=== PATIENT | female | born 1930 | race African-American/Black ===

== ENCOUNTER → 2016-07-25 | Outpatient (CLI) | payer MEDICARE, BC ==
[2016-07-25 10:06] LABS: BASO # 0.1 x10^3/uL (0.0-0.2); BASO % 2 % (0-3); EOS % 3 % (0-3); HEMATOCRIT 24.7 % (36.0-47.0); HEMOGLOBIN 7.5 g/dL (12.0-15.5); LYMPH # 0.8 x10^3/uL (1.0-4.8); LYMPH % 13 % (24-48); MEAN CORPUSCULAR HEMOGLOBIN 25 pg (25-35); MEAN CORPUSCULAR HGB CONC 30 g/dL (31-37); MEAN CORPUSCULAR VOLUME 81 fL (79-100); MONO % 8 % (0-9); NEUT % 75 % (31-73); PLATELET COUNT 269 x10^3/uL (140-400); RED BLOOD COUNT 3.06 x10^6/uL (3.50-5.40); WHITE BLOOD COUNT 6.8 x10^3/uL (4.0-11.0)
[2016-07-25 10:07] LABS: BILIRUBIN,URINE NEGATIVE (NEG); GLUCOSE,URINE NEGATIVE (NEG); NITRITE,URINE NEGATIVE (NEG); PROTEIN,URINE NEGATIVE (NEG-TRACE); UROBILINOGEN,URINE 0.2 mg/dL (0.2 mg/dL)
[2016-07-25 10:20] LABS: ALBUMIN 3.9 g/dL (3.4-5.0); CALCIUM 9.1 mg/dL (8.5-10.1); CREATININE 1.4 mg/dL (0.6-1.0); MAGNESIUM 1.9 mg/dL (1.8-2.4); PHOSPHORUS 3.2 mg/dL (2.6-4.7); POTASSIUM 3.7 mmol/L (3.5-5.1); TOTAL BILIRUBIN 0.6 mg/dL (0.2-1.0); TOTAL PROTEIN 7.7 g/dL (6.4-8.2); URIC ACID 5.1 mg/dL (2.6-6.0)
[2016-07-25 10:38] LABS: BACTERIA,URINE FEW /HPF (0-FEW); RBC,URINE OCC /HPF (0-2); SQUAMOUS EPITHELIAL CELL,UR MOD /LPF
== END | disposition home or self-care (01) ==
LOC: LAB 09:29
PROVIDERS: ATTEND Internal Medicine Nephrology
DX: N18.2 Chronic kidney disease, stage 2 (mild) (principal)
CPT/HCPCS: 36415; 80053; 81001; 83735; 84100; 84550; 85027; 87086

== ENCOUNTER → 2016-08-02 | Outpatient (CLI) | payer MEDICARE, BC ==
[~2016-08-02] MED LIST: ASPI1TAB30 PO; ATOR10TA60 PO; CHOL20003 PO; VALS320T2 PO
[2016-08-02 14:41] LABS: BASO # 0.1 x10^3/uL (0.0-0.2); BASO % 2 % (0-3); EOS % 2 % (0-3); HEMATOCRIT 22.8 % (36.0-47.0); LYMPH # 0.8 x10^3/uL (1.0-4.8); LYMPH % 12 % (24-48); MEAN CORPUSCULAR HEMOGLOBIN 24 pg (25-35); MEAN CORPUSCULAR HGB CONC 31 g/dL (31-37); MEAN CORPUSCULAR VOLUME 79 fL (79-100); MONO % 11 % (0-9); NEUT % 74 % (31-73); PLATELET COUNT 262 x10^3/uL (140-400); RED BLOOD COUNT 2.88 x10^6/uL (3.50-5.40); RED CELL DISTRIBUTION WIDTH 16.2 % (11.5-14.5); WHITE BLOOD COUNT 6.8 x10^3/uL (4.0-11.0)
[2016-08-02 15:05] LABS: % SAT IRON 3 % (15-34); IRON,SERUM 12 ug/dL (50-170)
--- NOTE | 2016-08-02 15:58 | RAD ---
Indication unintended weight loss. PA and lateral views of the chest were obtained. No prior plain film imaging of the chest is available. There is generalized cardiomegaly. Tortuous thoracic aorta is noted. There are patchy opacities in the lungs which probably reflecting chronic pleural-parenchymal scarring. An infectious component in the lungs is not entirely excluded but is felt less likely. A definite consolidated pneumonia is not seen. There is no pleural fluid. A dominant mass in either lung is not seen. There is likely bony demineralization. Degenerative changes are seen in the visualized spinal column. IMPRESSION: Cardiomegaly. Probable pleural-parenchymal scarring. No acute finding seen in the chest or dominant soft tissue mass.
== END | disposition home or self-care (01) ==
LOC: LAB 14:17
PROVIDERS: ATTEND Family Medicine
DX: D64.9 Anemia, unspecified (principal); R63.4 Abnormal weight loss
CPT/HCPCS: 36415; 71020; 82728; 83540; 83550; 85027

== ENCOUNTER 2016-08-05 12:28 | Inpatient (IN) | payer MEDICARE, BC ==
[~2016-08-05] VITALS: Ht 134.6 cm; Wt 45.4 kg
--- NOTE | 2016-08-05 13:05 | EKG ---
[facility] [address] [place] [address] Test Date: 2016-08-05 Test Time: 12:59:11 Pat Name: REY GLASER Department: Room: Gender: F Warp Hanger: : 1930 Requested By: ARIA RIVERO Order Number: [id number] Reading MD: Ivan Dunham Measurements Intervals [place] Rate: 85 P: -34 VA: 138 QRS: -21 QRSD: 104 T: 64 QT: 396 QTc: 477 Interpretive Statements SINUS RHYTHM LEFTWARD AXIS CONSISTENT WITH ANTEROSEPTAL INFARCT AGE UNDETERMINED NON-SPECIFIC ST/T CHANGES Electronically Signed On 08-06-2016 9:43:21 CDT by Ivan Dunham
[2016-08-05] MEDS ORDERED: MORPHINE SULFATE 2 MG/ML DISP.SYRIN. IV PRN (13:15)
[2016-08-05] MEDS ORDERED: ONDANSETRON PF 4 MG/2 ML VIAL. IV PRN ×2 (13:15→14:08)
--- NOTE | 2016-08-05 13:21 | PHYS DOC ---
Past Medical History Past Medical History: High Cholesterol, Migraines, Other Additional Past Medical Histor: scoliosis Past Surgical History: No Surgical History Alcohol Use: None Drug Use: None Adult General Chief Complaint Chief Complaint: WEIGHT LOSS HPI HPI 85-year-old female presenting to the emergency department today by private vehicle with a friend. She reports being seen in primary care clinic and being evaluated for intermittent abdominal pain and nausea. They obtained blood work on Friday. The hemoglobin of the patient came back at 7 and the patient was called and instructed to come to the emergency department for an admission. Report of positive fecal occult hemoglobin. Weight loss as well. Her abdominal pain is been a general discomfort that is nonfocal for about 6 weeks. Mild nausea with watery stools. She denies seeing blood in her stool, however her fecal occult testing in clinic was positive. Her pain is nonradiating. It is moderate. No specific timing. Review of systems is positive for chills weight loss. Negative for chest pain shortness of breath or syncope. All other review of systems is negative unless otherwise noted in history of present illness. Review of Systems Review of Systems SEE ABOVE. Current Medications Current Medications Current Medications Medications (Trade) Dose Ordered Sig/Talia Start Time Stop Time Status Last Admin Dose Admin Sodium Chloride (Iv Sodium Chloride 0.9% 500ml Bag) 500 ml @ 500 mls/hr 1X ONCE 08/05/16 13:30 08/05/16 14:29 08/05/16 13:02 500 MLS/HR Allergies Allergies Allergies Coded Allergies Type Severity Reaction Last Updated Verified No Known Drug Allergies 08/05/16 No Physical Exam Physical Exam Constitutional: Well developed, well nourished, no acute distress, non-toxic appearance. HENT: Normocephalic, atraumatic, bilateral external ears normal, oropharynx moist, no oral exudates, nose normal. [] Eyes: PERRLA, EOMI, conjunctiva normal, no discharge. Neck: Normal range of motion, no tenderness, supple, no stridor. [] Cardiovascular:Heart rate regular rhythm, no murmur Lungs & Thorax: Bilateral breath sounds clear to auscultation [] Abdomen: Abdomen is soft and nontender palpation. Negative McBurney's point. Negative Padilla sign. No rebound tenderness or guarding present. Skin: Warm, dry, no erythema, no rash. Back: No tenderness, no CVA tenderness. [] Extremities: No tenderness, no cyanosis, no clubbing, ROM intact, no edema. Neurologic: Alert and oriented X 3, normal motor function, normal sensory function, no focal deficits noted. Psychologic: Affect normal, judgement normal, mood normal. [] Current Patient Data Vital Signs Vital Signs Date Time Temp Pulse Resp B/P Pulse Ox O2 Delivery O2 Flow Rate FiO2 08/05/16 12:32 97.9 93 24 147/40 100 Room Air 97.9 EKG EKG EKG shows sinus rhythm with a regular rate. Left axis deviation present. ST segments congruent. Intervals show mildly prolonged QRS. Radiology/Procedures Radiology/Procedures [] Course & Med Decision Making Course & Med Decision Making Pertinent Labs and Imaging studies reviewed. (See chart for details) [85-year-old female presenting to the emergency department this morning after having abdominal pain previously though currently does not have abdominal pain. She had been seen in clinic and found to have a low hemoglobin. Blood work obtained here. Vital signs here show a heart rate in the mid 90s. Saturating well and comfortable appearing with a nontender abdominal exam. Fecal occult testing positive there. Patient was given a small bolus of fluids here type and screen obtained. I discussed the case with Dr. Rader our rescue worker. And the patient was subsequent admitted to Dr. Gongora at approximately 1:10 PM at which point the patient's care was transferred. Dragon Disclaimer Dragon Disclaimer This electronic medical record was generated, in whole or in part, using a voice recognition dictation system. Departure Departure Impression: Primary Impression: Anemia Additional Impression: GI bleed Disposition: ADMITTED INPATIENT Admitting Physician: Zohreh Gongora Condition: STABLE Referrals: LYDIA MALLORY MD (PCP) Problem Qualifiers Primary Impression: Anemia Anemia type: unspecified type Qualified Code: D64.9 - Anemia, unspecified ARIA RIVERO MD Aug 05, 2016 13:21
[2016-08-05] MEDS: IV NORMAL SALINE 1000ML BAG 1,000 ML IV SCH ×3 (13:25→21:12)
[2016-08-05] MEDS ORDERED: IV NORMAL SALINE 500ML BAG 500 ML IV ONE (13:30)
[2016-08-05 13:32] LABS: BASO # 0.1 x10^3/uL (0.0-0.2); BASO % 1 % (0-3); EOS % 0 % (0-3); HEMATOCRIT 22.3 % (36.0-47.0); LYMPH # 0.7 x10^3/uL (1.0-4.8); LYMPH % 12 % (24-48); MEAN CORPUSCULAR HEMOGLOBIN 24 pg (25-35); MEAN CORPUSCULAR HGB CONC 30 g/dL (31-37); MEAN CORPUSCULAR VOLUME 79 fL (79-100); MONO % 7 % (0-9); NEUT % 80 % (31-73); PLATELET COUNT 237 x10^3/uL (140-400); RED BLOOD COUNT 2.83 x10^6/uL (3.50-5.40); RED CELL DISTRIBUTION WIDTH 16.3 % (11.5-14.5)
[2016-08-05 13:34] LABS: HEMOGLOBIN 6.7 g/dL (12.0-15.5)
[2016-08-05 13:43] LABS: INR 1.2 (0.8-1.1); PROTHROMBIN TIME PATIENT 14.5 SEC (11.7-14.0)
[2016-08-05 13:43] LABS: BILIRUBIN,URINE NEGATIVE (NEG); GLUCOSE,URINE NEGATIVE (NEG); NITRITE,URINE NEGATIVE (NEG); PH,URINE 6.5; PROTEIN,URINE NEGATIVE (NEG-TRACE)
[2016-08-05 13:44] LABS: CALCIUM 9.7 mg/dL (8.5-10.1); CREATININE 1.3 mg/dL (0.6-1.0); GFR 46.9; POTASSIUM 4.2 mmol/L (3.5-5.1)
[2016-08-05 14:14] LABS: BACTERIA,URINE FEW /HPF (0-FEW); RBC,URINE RARE /HPF (0-2); SQUAMOUS EPITHELIAL CELL,UR FEW /LPF; WBC,URINE RARE /HPF (0-4)
[2016-08-05] MEDS ORDERED: LIDOCAINE (700MG/PATCH) PATCH. TD PRN (14:15)
[2016-08-05] MEDS ORDERED: ACETAMINOPHEN 500 MG TABLET PO PRN (14:15)
--- NOTE | 2016-08-05 14:20 | PDOC1 ---
History and Physical Date of Admission Date of Admission DATE: 08/05/16 TIME: 14:12 Identification/Chief Complaint Chief Complaint sent by PCP bec of hgb 7 from 11 Source Source: Caregiver, Chart review, Patient History of Present Illness History of Present Illness 85 y/o AA female otherwise previously healthy and fully functional for stated age, has CKD follows with Giovani Chandler q 6 mos, was found to have hgb 7 from 11 and so was sent to ER, NO reports of melena but has been taking OTC alleve, qdaily for scoliosis. Only takes a hyperlipidemic agent at home. Hgb 6.9 at ER,VS ok except for mild tachycardia, Pt ambulated to the bathroom with no presyncopal sxs (lightheadedness or dizziness). She denies easy fatigability or lack of energy, Does admit to around 10 lb weight loss in past few mos, but claims not a big eater too. Last c scope done was routine some 3 yrs ago and was normal, She vows she will never have another c scope; Er has informed GI of the admit, after dw ER, we will transfuse 1 pRBC, get iron studies prior to transfusion, CAse dw friend at bedside, pt, ER MD and FIELD LIABILITY GENERALIST MCV 77 Past Medical History Cardiovascular: Hyperlipidemia Past Surgical History Past Surgical History: No pertinent history Family History Family History: No Significant Social History Smoke: No ALCOHOL: none Drugs: None Current Problem List Problem List Problems Medical Problems: (1) Anemia Status: Acute (2) GI bleed Status: Acute Problems: Current Medications Current Medications Current Medications Sodium Chloride (Iv Sodium Chloride 0.9% 500ml Bag) 500 ml @ 500 mls/hr 1X ONCE IV Last administered on 08/05/16t 13:02; Start 08/05/16 at 13:30; Stop at 14:29 Ondansetron HCl (Zofran) 4 mg PRN Q8HRS PRN IV NAUSEA/VOMITING; Start 08/05/16 at 13:15; Stop 08/06/16 at 13:14 Morphine Sulfate 2 mg 2 mg PRN Q2HR PRN IV PAIN; Start 08/05/16 at 13:15; Stop 08/06/16 at 13:14 Sodium Chloride (Iv Sodium Chloride 0.9% 1000ml Bag) 1,000 ml @ 100 mls/hr Q10H IV Last administered on 08/05/16t 13:25; Start 08/05/16 at 13:30; Stop at 13:29 Allergies Allergies: Coded Allergies: No Known Drug Allergies (Unverified , 08/05/16) ROS Review of System weight loss, no emesis, melena, no dec appetite, no cp, soa, abd pain, or change in BM Physical Exam General: Alert, Oriented X3, Cooperative, No acute distress HEENT: Atraumatic, PERRLA, EOMI Lungs: Clear to auscultation, Normal air movement Heart: S1S2, RRR, no thrills, no rubs, no gallops Cardiovascular: S1, S2 Breasts: Normal, Rt breast nml w/o mass, Lt breast nml w/o mass, Nipples normal Abdomen: Normal bowel sounds, Soft, No tenderness, No hepatosplenomegaly, No masses Male Genitals Exam: normal genitalia Rectal Exam: not examined PELVIC: Nml ext genitalia Extremities: No clubbing, No cyanosis, No edema, Normal pulses, No tenderness/ swelling Skin: No rashes, No breakdown, No significant lesion Neuro: Normal gait, Normal speech, Strength at 5/5 X4 ext, Normal tone, Sensation intact, Cranial nerves 3-12 NL, Reflexes 2+ Psych/Mental Status: Mental status NL, Mood NL Vitals Vitals Vital Signs Date Time Temp Pulse Resp B/P Pulse Ox O2 Delivery O2 Flow Rate FiO2 08/05/16 13:13 92 138/69 96 Room Air 08/05/16 12:32 97.9 24 97.9 Labs Labs Laboratory Tests Test 08/05/16 12:55 White Blood Count 6.0x10^3/uL (4.0-11.0) Red Blood Count 2.83x10^6/uL (3.50-5.40) Hemoglobin 6.7g/dL (12.0-15.5) Hematocrit 22.3% (36.0-47.0) Mean Corpuscular Volume 79fL (79-100) Mean Corpuscular Hemoglobin 24pg (25-35) Mean Corpuscular Hemoglobin Concent 30g/dL (31-37) Red Cell Distribution Width 16.3% (11.5-14.5) Platelet Count 237x10^3/uL (140-400) Neutrophils (%) (Auto) 80% (31-73) Lymphocytes (%) (Auto) 12% (24-48) Monocytes (%) (Auto) 7% (0-9) Eosinophils (%) (Auto) 0% (0-3) Basophils (%) (Auto) 1% (0-3) Neutrophils # (Auto) 4.8x10^3uL (1.8-7.7) Lymphocytes # (Auto) 0.7x10^3/uL (1.0-4.8) Monocytes # (Auto) 0.4x10^3/uL (0.0-1.1) Eosinophils # (Auto) 0.0x10^3/uL (0.0-0.7) Basophils # (Auto) 0.1x10^3/uL (0.0-0.2) Sodium Level 145mmol/L (136-145) Potassium Level 4.2mmol/L (3.5-5.1) Chloride Level 109mmol/L (98-107) Carbon Dioxide Level 24mmol/L (21-32) Anion Gap 12 (6-14) Blood Urea Nitrogen 23mg/dL (7-20) Creatinine 1.3mg/dL (0.6-1.0) Estimated GFR (Cockcroft-Gault) 46.9 Glucose Level 110mg/dL (70-99) Lactic Acid Level 1.6mmol/L (0.4-2.0) Calcium Level 9.7mg/dL (8.5-10.1) Troponin I Quantitative < 0.017ng/mL (0.000-0.055) Lipase 106U/L (73-393) Laboratory Tests Test 08/05/16 12:55 White Blood Count 6.0x10^3/uL (4.0-11.0) Red Blood Count 2.83x10^6/uL (3.50-5.40) Hemoglobin 6.7g/dL (12.0-15.5) Hematocrit 22.3% (36.0-47.0) Mean Corpuscular Volume 79fL (79-100) Mean Corpuscular Hemoglobin 24pg (25-35) Mean Corpuscular Hemoglobin Concent 30g/dL (31-37) Red Cell Distribution Width 16.3% (11.5-14.5) Platelet Count 237x10^3/uL (140-400) Neutrophils (%) (Auto) 80% (31-73) Lymphocytes (%) (Auto) 12% (24-48) Monocytes (%) (Auto) 7% (0-9) Eosinophils (%) (Auto) 0% (0-3) Basophils (%) (Auto) 1% (0-3) Neutrophils # (Auto) 4.8x10^3uL (1.8-7.7) Lymphocytes # (Auto) 0.7x10^3/uL (1.0-4.8) Monocytes # (Auto) 0.4x10^3/uL (0.0-1.1) Eosinophils # (Auto) 0.0x10^3/uL (0.0-0.7) Basophils # (Auto) 0.1x10^3/uL (0.0-0.2) Sodium Level 145mmol/L (136-145) Potassium Level 4.2mmol/L (3.5-5.1) Chloride Level 109mmol/L (98-107) Carbon Dioxide Level 24mmol/L (21-32) Anion Gap 12 (6-14) Blood Urea Nitrogen 23mg/dL (7-20) Creatinine 1.3mg/dL (0.6-1.0) Estimated GFR (Cockcroft-Gault) 46.9 Glucose Level 110mg/dL (70-99) Lactic Acid Level 1.6mmol/L (0.4-2.0) Calcium Level 9.7mg/dL (8.5-10.1) Troponin I Quantitative < 0.017ng/mL (0.000-0.055) Lipase 106U/L (73-393) VTE Prophylaxis Ordered VTE Prophylaxis Devices: Contraindicated VTE Pharmacological Prophylaxi: Contraindicated Assessment/Plan Assessment/Plan 1. Acute microcytic anemia, acute precipitous drop of hgb - difftls include gastritis, PUD, non ulcer gastritis from long time NSAID use (2mos now for scoliosis) 2. Chronic anemia of CKD - follows with renal q 6 mos 3. Scoliosis 4. Dyslipidemia 5. CKD - crea 1,4 seems baseline PLAn: Admit med tele, 2 mN IVF PPI COnsult GI NPO post MN, ok for diet for now TYpe and screen, transfuse 1 pRBC now, rpt HH moraima AM Check iron studies Monitor creatinine fcn No need for renal consult for now MAy check B12 and folate too as indices are borderline If hgb cont to drop and FOBT positive, might need EGD Dw ER MD, FIELD LIABILITY GENERALIST, pt and family TYlenol and lidoderm for back pain/scoliosis PT/OT DANII WHITING MD Aug 05, 2016 14:20
--- NOTE | 2016-08-05 14:47 | ACF ---
Admission Forms Criteria ANEMIA, IRON DEFICIENCY OR UNSPECIFIED Clinical Indications for Inpatient Care (Place 'X' for any and all applicable criteria): Admission is indicated for ANY ONE of the following(1)(2)(3)(4)(5)(6)(7): [X] I. Inpatient admission required rather than observation care (Also use Anemia, Iron Deficiency or Unspecified: Observation Care guideline as appropriate) because of ANY ONE of the following: [] a) Hemodynamic instability that is severe or persistent [] b) Active bleeding that cannot be rapidly controlled [] c) CVS symptoms (i.e., dyspnea, chest pain, heart failure) that are severe or persistent [] d) Neurologic symptoms (i.e., cognitive impairment, recurrent syncope or near syncope) that are severe or persistent [] e) Cardiac arrhythmias of immediate concern [] f) Acute peripheral ischemia (e.g., pulseless, cool, mottled, or cyanotic extremity) [] g) High-risk low platelet count [] h) Acute renal failure [] i) Ongoing transfusion for blood loss (greater than 2 units) [] j) IV fluid to replace significant ongoing (eg, >24 hours) losses (> 3 L/m2 per day) [] k) Pulmonary artery catheter monitoring [] l) Supplemental oxygen or respiratory treatments for over 24 hours that are performable only in acute inpatient setting [] m) Immediate inpatient surgery [X] n) Other condition, treatment or monitoring requiring inpatient admission [] II Active massive hemorrhage [] III. Active hemolysis with rapidly progressive anemia [A](6) Extended stay beyond goal length of stay may be needed for (17)(18) []a) Diagnosed cause of anemia requiring longer hospitalization (eg, active GI bleeding, immune hemolysis requiring electrophoresis, complications of malignancy requiring acute care []b) Continued emergent anemia indicators (23) []c) Transfusion reactions []d) Associated leukopenia or thrombocytopenia needing inpatient care []e) Active comorbidities (eg, renal failure, heart failure) The original [facility] content created by [facility] has been revised. The portions of the content which have been revised are identified through the use of italic text or in bold. [facility] Guidelines has neither reviewed nor approved the modified material. All other unmodified content is copyright [facility] Care [facility]. Please see references footnoted in the original [facility] edition 2016 Admission Criteria Met?: Yes QI GAN Aug 05, 2016 14:47
[2016-08-05 15:04] LABS: % SAT IRON 3 % (15-34); IRON,SERUM 13 ug/dL (50-170); VITAMIN-B12 492 pg/mL (247-911)
[2016-08-05 15:30] VITALS: BP 142/69
[2016-08-05 17:50] VITALS: BP 147/76
[2016-08-05] MEDS: PANTOPRAZOLE IV PUSH 40 MG VIAL. IVP SCH (18:06)
[2016-08-05 18:09] VITALS: BP 148/71
[2016-08-05 19:20] VITALS: BP 138/76
[2016-08-05 20:20] VITALS: BP 148/78
[2016-08-05 23:05] VITALS: BP 147/69
[2016-08-06 03:05] VITALS: BP 137/65
[2016-08-06 04:29] LABS: BASO # 0.1 x10^3/uL (0.0-0.2); BASO % 1 % (0-3); EOS % 3 % (0-3); HEMATOCRIT 26.5 % (36.0-47.0); HEMOGLOBIN 8.1 g/dL (12.0-15.5); LYMPH # 0.6 x10^3/uL (1.0-4.8); LYMPH % 11 % (24-48); MEAN CORPUSCULAR HEMOGLOBIN 23 pg (25-35); MEAN CORPUSCULAR HGB CONC 30 g/dL (31-37); MEAN CORPUSCULAR VOLUME 77 fL (79-100); MONO % 11 % (0-9); NEUT % 74 % (31-73); PLATELET COUNT 210 x10^3/uL (140-400); RED BLOOD COUNT 3.45 x10^6/uL (3.50-5.40); RED CELL DISTRIBUTION WIDTH 16.3 % (11.5-14.5); WHITE BLOOD COUNT 5.7 x10^3/uL (4.0-11.0)
[2016-08-06 04:41] LABS: CALCIUM 8.8 mg/dL (8.5-10.1); CREATININE 1.1 mg/dL (0.6-1.0); GFR 56.9; POTASSIUM 3.9 mmol/L (3.5-5.1)
[2016-08-06 06:24] LABS: FOLATE > 24.00 ng/ml (3.2-20.0)
[2016-08-06 07:00] VITALS: BP 127/70
[2016-08-06] MEDS: PANTOPRAZOLE IV PUSH 40 MG VIAL. IVP SCH (09:13)
--- NOTE | 2016-08-06 09:47 | PDOC2 ---
GI CONSULT Reason For Consult: GI Bleed HPI: HPI: 85 y/o AA female sent to ER w/ anemia discovered on routine labs by her psych nurse. Hgb in 12/2015 was 11.4, 7.5 on 07/25/16, then 7 on 08/02, and then 6.7 when admitted yesterday. She also reports positive hemoccult through her PCP. She denies weakness, SOA, CP, hematochezia, and melena. She has lost between 5-10 pounds in the past 6 months but says her appetite is unchanged. No reflux/heartburn, although she noted a "gas pain" in the epigastrium for about the last week (now resolved). Denies diarrhea or constipation although along w/ the gas pain, stools have been soft and yellow. Reports normal colonoscopy 3-4 years ago. No previous EGD. Prior to establishing care w/ a psych nurse, she was taking Advil QD for back pain; she stopped this last year and now takes Tylenol PRN. PMH: PMH: HTN, HLD, CKD, scoliosis/back pain FH: Family History: No pertinent hx Social History: Smoke: No ALCOHOL: none Drugs: None ROS: GEN: Denies fevers, chills, sweats HEENT: Denies blurred vision, sore throat CV: Denies chest pain RESP: Denies shortness of air, cough GI: Per HPI : Denies hematuria, dysuria ENDO: +weight loss NEURO: Denies confusion, dizziness MSK: Denies weakness, joint pain/swelling SKIN: Denies jaundice, pruritus VItals: Vitals: Vital Signs Date Time Temp Pulse Resp B/P Pulse Ox O2 Delivery O2 Flow Rate FiO2 08/06/16 07:00 97.7 77 18 127/70 95 Room Air 97.7 Labs: Labs: Laboratory Tests Test 08/05/16 12:55 08/05/16 13:35 08/06/16 03:40 White Blood Count 6.0x10^3/uL (4.0-11.0) 5.7x10^3/uL (4.0-11.0) Red Blood Count 2.83x10^6/uL (3.50-5.40) 3.45x10^6/uL (3.50-5.40) Hemoglobin 6.7g/dL (12.0-15.5) 8.1g/dL (12.0-15.5) Hematocrit 22.3% (36.0-47.0) 26.5% (36.0-47.0) Mean Corpuscular Volume 79fL (79-100) 77fL (79-100) Mean Corpuscular Hemoglobin 24pg (25-35) 23pg (25-35) Mean Corpuscular Hemoglobin Concent 30g/dL (31-37) 30g/dL (31-37) Red Cell Distribution Width 16.3% (11.5-14.5) 16.3% (11.5-14.5) Platelet Count 237x10^3/uL (140-400) 210x10^3/uL (140-400) Neutrophils (%) (Auto) 80% (31-73) 74% (31-73) Lymphocytes (%) (Auto) 12% (24-48) 11% (24-48) Monocytes (%) (Auto) 7% (0-9) 11% (0-9) Eosinophils (%) (Auto) 0% (0-3) 3% (0-3) Basophils (%) (Auto) 1% (0-3) 1% (0-3) Neutrophils # (Auto) 4.8x10^3uL (1.8-7.7) 4.2x10^3uL (1.8-7.7) Lymphocytes # (Auto) 0.7x10^3/uL (1.0-4.8) 0.6x10^3/uL (1.0-4.8) Monocytes # (Auto) 0.4x10^3/uL (0.0-1.1) 0.6x10^3/uL (0.0-1.1) Eosinophils # (Auto) 0.0x10^3/uL (0.0-0.7) 0.2x10^3/uL (0.0-0.7) Basophils # (Auto) 0.1x10^3/uL (0.0-0.2) 0.1x10^3/uL (0.0-0.2) Prothrombin Time 14.5SEC (11.7-14.0) Prothromb Time International Ratio 1.2 (0.8-1.1) Activated Partial Thromboplast Time 29SEC (24-38) Sodium Level 145mmol/L (136-145) 145mmol/L (136-145) Potassium Level 4.2mmol/L (3.5-5.1) 3.9mmol/L (3.5-5.1) Chloride Level 109mmol/L (98-107) 111mmol/L (98-107) Carbon Dioxide Level 24mmol/L (21-32) 21mmol/L (21-32) Anion Gap 12 (6-14) 13 (6-14) Blood Urea Nitrogen 23mg/dL (7-20) 17mg/dL (7-20) Creatinine 1.3mg/dL (0.6-1.0) 1.1mg/dL (0.6-1.0) Estimated GFR (Cockcroft-Gault) 46.9 56.9 Glucose Level 110mg/dL (70-99) 80mg/dL (70-99) Lactic Acid Level 1.6mmol/L (0.4-2.0) Calcium Level 9.7mg/dL (8.5-10.1) 8.8mg/dL (8.5-10.1) Troponin I Quantitative < 0.017ng/mL (0.000-0.055) Lipase 106U/L (73-393) Urine Collection Type Unknown Urine Color Yellow Urine Clarity Clear Urine pH 6.5 Urine Specific [place] 1.015 Urine Protein Negativemg/dL (NEG-TRACE) Urine Glucose (UA) Negativemg/dL (NEG) Urine Ketones (Stick) Negativemg/dL (NEG) Urine Blood Negative (NEG) Urine Nitrite Negative (NEG) Urine Bilirubin Negative (NEG) Urine Urobilinogen Dipstick 1.0mg/dL (0.2 mg/dL) Urine Leukocyte Esterase Small (NEG) Urine RBC Rare/HPF (0-2) Urine WBC Rare/HPF (0-4) Urine Squamous Epithelial Cells Few/LPF Urine Bacteria Few/HPF (0-FEW) Iron Level 13ug/dL (50-170) Total Iron Binding Capacity 475ug/dL (250-450) Iron Saturation 3% (15-34) Ferritin 6ng/mL (8-252) Vitamin B12 Level 492pg/mL (247-911) Serum Folate > 24.00ng/ml (3.2-20.0) Allergies: Coded Allergies: No Known Drug Allergies (Unverified , 08/05/16) Medications: Current Medications Medications (Trade) Dose Ordered Sig/Talia Route PRN Reason Start Time Stop Time Status Last Admin Dose Admin Sodium Chloride 500 ml @ 500 mls/hr 1X ONCE IV 08/05/16 13:30 08/05/16 14:29 DC 08/05/16 13:02 Sodium Chloride (Iv Sodium Chloride 0.9% 1000ml Bag) 1,000 ml @ 100 mls/hr Q10H IV 08/05/16 13:30 08/06/16 13:29 08/05/16 21:12 Pantoprazole Sodium (Protonix Vial) 40 mg DAILY IVP 08/05/16 14:30 08/06/16 09:13 Imaging: Imaging: - PE: GEN: NAD HEENT: Atraumatic, PERRL LUNGS: CTAB HEART: RRR +loud murm ABD: NABS, S/ND/NT EXTREMITY: No edema SKIN: No rashes, no jaundice NEURO/PSYCH: A & O 3 A/P: A/P: ERIKA -significant drop in Hgb since last year -denies obvious bleeding Epigastric discomfort, weight loss CKD w/ previous NSAID use (stopped last year) CRC screen -reports normal colonoscopy 3-4 years ago -- She agrees to EGD this afternoon. D/w RN, GI lab. Keep NPO w/ IV PPI for now. SUSHIL ARREDONDO Aug 06, 2016 09:47
[2016-08-06 11:00] VITALS: BP 146/71
[2016-08-06] MEDS ORDERED: ASA/APAP/CAFFEINE 250/250/65MG TABLET. PO PRN (11:45)
[2016-08-06] MEDS ORDERED: ATOR10TA60 PO (11:48)
[2016-08-06] MEDS ORDERED: VALS320T2 PO (11:48)
[2016-08-06] MEDS ORDERED: CHOL20003 PO (11:48)
[2016-08-06] MEDS ORDERED: ASPI1TAB30 PO (11:48)
--- NOTE | 2016-08-06 12:10 | PDOC ---
PROGRESS NOTES Chief Complaint Chief Complaint 1. Acute microcytic anemia, acute precipitous drop of hgb - difftls include gastritis, PUD, non ulcer gastritis from long time NSAID use (off for 6ms) 2. Chronic anemia of CKD - follows with renal q 6 mos 3. Scoliosis 4. Dyslipidemia 5. CKD - crea 1,4 seems baseline 6. HTN 7. MIGRAINE PLAn: Admit med tele, 2 mN IVF PPI COnsult GI, EGD today cont home meds monitor Hb hold home med for migraine add po iron History of Present Illness History of Present Illness no melena or active bleeding taking NSAIDS till 02/2016 takes asa for migraine sometime Hb stable post transfusion 1 upbrc 08/05 Vitals Vitals Vital Signs Date Time Temp Pulse Resp B/P Pulse Ox O2 Delivery O2 Flow Rate FiO2 08/06/16 11:00 97.7 83 18 146/71 98 97.7 08/06/16 08:10 Room Air Physical Exam General: Alert, Oriented X3, Cooperative, No acute distress Heart: Regular rate, Normal S1 Lungs: Clear Abdomen: Normal bowel sounds, Soft, No tenderness, No hepatosplenomegaly, No masses Extremities: No clubbing, No cyanosis, No edema, Normal pulses, No tenderness/ swelling Skin: No rashes, No breakdown, No significant lesion Labs LABS Laboratory Tests Test 08/05/16 12:55 08/05/16 13:35 08/06/16 03:40 White Blood Count 6.0x10^3/uL (4.0-11.0) 5.7x10^3/uL (4.0-11.0) Red Blood Count 2.83x10^6/uL (3.50-5.40) 3.45x10^6/uL (3.50-5.40) Hemoglobin 6.7g/dL (12.0-15.5) 8.1g/dL (12.0-15.5) Hematocrit 22.3% (36.0-47.0) 26.5% (36.0-47.0) Mean Corpuscular Volume 79fL (79-100) 77fL (79-100) Mean Corpuscular Hemoglobin 24pg (25-35) 23pg (25-35) Mean Corpuscular Hemoglobin Concent 30g/dL (31-37) 30g/dL (31-37) Red Cell Distribution Width 16.3% (11.5-14.5) 16.3% (11.5-14.5) Platelet Count 237x10^3/uL (140-400) 210x10^3/uL (140-400) Neutrophils (%) (Auto) 80% (31-73) 74% (31-73) Lymphocytes (%) (Auto) 12% (24-48) 11% (24-48) Monocytes (%) (Auto) 7% (0-9) 11% (0-9) Eosinophils (%) (Auto) 0% (0-3) 3% (0-3) Basophils (%) (Auto) 1% (0-3) 1% (0-3) Neutrophils # (Auto) 4.8x10^3uL (1.8-7.7) 4.2x10^3uL (1.8-7.7) Lymphocytes # (Auto) 0.7x10^3/uL (1.0-4.8) 0.6x10^3/uL (1.0-4.8) Monocytes # (Auto) 0.4x10^3/uL (0.0-1.1) 0.6x10^3/uL (0.0-1.1) Eosinophils # (Auto) 0.0x10^3/uL (0.0-0.7) 0.2x10^3/uL (0.0-0.7) Basophils # (Auto) 0.1x10^3/uL (0.0-0.2) 0.1x10^3/uL (0.0-0.2) Prothrombin Time 14.5SEC (11.7-14.0) Prothromb Time International Ratio 1.2 (0.8-1.1) Activated Partial Thromboplast Time 29SEC (24-38) Sodium Level 145mmol/L (136-145) 145mmol/L (136-145) Potassium Level 4.2mmol/L (3.5-5.1) 3.9mmol/L (3.5-5.1) Chloride Level 109mmol/L (98-107) 111mmol/L (98-107) Carbon Dioxide Level 24mmol/L (21-32) 21mmol/L (21-32) Anion Gap 12 (6-14) 13 (6-14) Blood Urea Nitrogen 23mg/dL (7-20) 17mg/dL (7-20) Creatinine 1.3mg/dL (0.6-1.0) 1.1mg/dL (0.6-1.0) Estimated GFR (Cockcroft-Gault) 46.9 56.9 Glucose Level 110mg/dL (70-99) 80mg/dL (70-99) Lactic Acid Level 1.6mmol/L (0.4-2.0) Calcium Level 9.7mg/dL (8.5-10.1) 8.8mg/dL (8.5-10.1) Troponin I Quantitative < 0.017ng/mL (0.000-0.055) Lipase 106U/L (73-393) Urine Collection Type Unknown Urine Color Yellow Urine Clarity Clear Urine pH 6.5 Urine Specific [place] 1.015 Urine Protein Negativemg/dL (NEG-TRACE) Urine Glucose (UA) Negativemg/dL (NEG) Urine Ketones (Stick) Negativemg/dL (NEG) Urine Blood Negative (NEG) Urine Nitrite Negative (NEG) Urine Bilirubin Negative (NEG) Urine Urobilinogen Dipstick 1.0mg/dL (0.2 mg/dL) Urine Leukocyte Esterase Small (NEG) Urine RBC Rare/HPF (0-2) Urine WBC Rare/HPF (0-4) Urine Squamous Epithelial Cells Few/LPF Urine Bacteria Few/HPF (0-FEW) Iron Level 13ug/dL (50-170) Total Iron Binding Capacity 475ug/dL (250-450) Iron Saturation 3% (15-34) Ferritin 6ng/mL (8-252) Vitamin B12 Level 492pg/mL (247-911) Serum Folate > 24.00ng/ml (3.2-20.0) Review of Systems Review of Systems no fever, chills, sob or chest pain Assessment and Plan Assessmemt and Plan Problems Medical Problems: (1) Anemia Status: Acute (2) GI bleed Status: Acute Problems: Comment Review of Relevant I have reviewed the following items ladonna (where applicable) has been applied. Labs Laboratory Tests Test 08/05/16 12:55 08/05/16 13:35 08/06/16 03:40 White Blood Count 6.0x10^3/uL (4.0-11.0) 5.7x10^3/uL (4.0-11.0) Red Blood Count 2.83x10^6/uL (3.50-5.40) 3.45x10^6/uL (3.50-5.40) Hemoglobin 6.7g/dL (12.0-15.5) 8.1g/dL (12.0-15.5) Hematocrit 22.3% (36.0-47.0) 26.5% (36.0-47.0) Mean Corpuscular Volume 79fL (79-100) 77fL (79-100) Mean Corpuscular Hemoglobin 24pg (25-35) 23pg (25-35) Mean Corpuscular Hemoglobin Concent 30g/dL (31-37) 30g/dL (31-37) Red Cell Distribution Width 16.3% (11.5-14.5) 16.3% (11.5-14.5) Platelet Count 237x10^3/uL (140-400) 210x10^3/uL (140-400) Neutrophils (%) (Auto) 80% (31-73) 74% (31-73) Lymphocytes (%) (Auto) 12% (24-48) 11% (24-48) Monocytes (%) (Auto) 7% (0-9) 11% (0-9) Eosinophils (%) (Auto) 0% (0-3) 3% (0-3) Basophils (%) (Auto) 1% (0-3) 1% (0-3) Neutrophils # (Auto) 4.8x10^3uL (1.8-7.7) 4.2x10^3uL (1.8-7.7) Lymphocytes # (Auto) 0.7x10^3/uL (1.0-4.8) 0.6x10^3/uL (1.0-4.8) Monocytes # (Auto) 0.4x10^3/uL (0.0-1.1) 0.6x10^3/uL (0.0-1.1) Eosinophils # (Auto) 0.0x10^3/uL (0.0-0.7) 0.2x10^3/uL (0.0-0.7) Basophils # (Auto) 0.1x10^3/uL (0.0-0.2) 0.1x10^3/uL (0.0-0.2) Prothrombin Time 14.5SEC (11.7-14.0) Prothromb Time International Ratio 1.2 (0.8-1.1) Activated Partial Thromboplast Time 29SEC (24-38) Sodium Level 145mmol/L (136-145) 145mmol/L (136-145) Potassium Level 4.2mmol/L (3.5-5.1) 3.9mmol/L (3.5-5.1) Chloride Level 109mmol/L (98-107) 111mmol/L (98-107) Carbon Dioxide Level 24mmol/L (21-32) 21mmol/L (21-32) Anion Gap 12 (6-14) 13 (6-14) Blood Urea Nitrogen 23mg/dL (7-20) 17mg/dL (7-20) Creatinine 1.3mg/dL (0.6-1.0) 1.1mg/dL (0.6-1.0) Estimated GFR (Cockcroft-Gault) 46.9 56.9 Glucose Level 110mg/dL (70-99) 80mg/dL (70-99) Lactic Acid Level 1.6mmol/L (0.4-2.0) Calcium Level 9.7mg/dL (8.5-10.1) 8.8mg/dL (8.5-10.1) Troponin I Quantitative < 0.017ng/mL (0.000-0.055) Lipase 106U/L (73-393) Urine Collection Type Unknown Urine Color Yellow Urine Clarity Clear Urine pH 6.5 Urine Specific [place] 1.015 Urine Protein Negativemg/dL (NEG-TRACE) Urine Glucose (UA) Negativemg/dL (NEG) Urine Ketones (Stick) Negativemg/dL (NEG) Urine Blood Negative (NEG) Urine Nitrite Negative (NEG) Urine Bilirubin Negative (NEG) Urine Urobilinogen Dipstick 1.0mg/dL (0.2 mg/dL) Urine Leukocyte Esterase Small (NEG) Urine RBC Rare/HPF (0-2) Urine WBC Rare/HPF (0-4) Urine Squamous Epithelial Cells Few/LPF Urine Bacteria Few/HPF (0-FEW) Iron Level 13ug/dL (50-170) Total Iron Binding Capacity 475ug/dL (250-450) Iron Saturation 3% (15-34) Ferritin 6ng/mL (8-252) Vitamin B12 Level 492pg/mL (247-911) Serum Folate > 24.00ng/ml (3.2-20.0) Laboratory Tests Test 08/05/16 12:55 08/05/16 13:35 08/06/16 03:40 White Blood Count 6.0x10^3/uL (4.0-11.0) 5.7x10^3/uL (4.0-11.0) Red Blood Count 2.83x10^6/uL (3.50-5.40) 3.45x10^6/uL (3.50-5.40) Hemoglobin 6.7g/dL (12.0-15.5) 8.1g/dL (12.0-15.5) Hematocrit 22.3% (36.0-47.0) 26.5% (36.0-47.0) Mean Corpuscular Volume 79fL (79-100) 77fL (79-100) Mean Corpuscular Hemoglobin 24pg (25-35) 23pg (25-35) Mean Corpuscular Hemoglobin Concent 30g/dL (31-37) 30g/dL (31-37) Red Cell Distribution Width 16.3% (11.5-14.5) 16.3% (11.5-14.5) Platelet Count 237x10^3/uL (140-400) 210x10^3/uL (140-400) Neutrophils (%) (Auto) 80% (31-73) 74% (31-73) Lymphocytes (%) (Auto) 12% (24-48) 11% (24-48) Monocytes (%) (Auto) 7% (0-9) 11% (0-9) Eosinophils (%) (Auto) 0% (0-3) 3% (0-3) Basophils (%) (Auto) 1% (0-3) 1% (0-3) Neutrophils # (Auto) 4.8x10^3uL (1.8-7.7) 4.2x10^3uL (1.8-7.7) Lymphocytes # (Auto) 0.7x10^3/uL (1.0-4.8) 0.6x10^3/uL (1.0-4.8) Monocytes # (Auto) 0.4x10^3/uL (0.0-1.1) 0.6x10^3/uL (0.0-1.1) Eosinophils # (Auto) 0.0x10^3/uL (0.0-0.7) 0.2x10^3/uL (0.0-0.7) Basophils # (Auto) 0.1x10^3/uL (0.0-0.2) 0.1x10^3/uL (0.0-0.2) Prothrombin Time 14.5SEC (11.7-14.0) Prothromb Time International Ratio 1.2 (0.8-1.1) Activated Partial Thromboplast Time 29SEC (24-38) Sodium Level 145mmol/L (136-145) 145mmol/L (136-145) Potassium Level 4.2mmol/L (3.5-5.1) 3.9mmol/L (3.5-5.1) Chloride Level 109mmol/L (98-107) 111mmol/L (98-107) Carbon Dioxide Level 24mmol/L (21-32) 21mmol/L (21-32) Anion Gap 12 (6-14) 13 (6-14) Blood Urea Nitrogen 23mg/dL (7-20) 17mg/dL (7-20) Creatinine 1.3mg/dL (0.6-1.0) 1.1mg/dL (0.6-1.0) Estimated GFR (Cockcroft-Gault) 46.9 56.9 Glucose Level 110mg/dL (70-99) 80mg/dL (70-99) Lactic Acid Level 1.6mmol/L (0.4-2.0) Calcium Level 9.7mg/dL (8.5-10.1) 8.8mg/dL (8.5-10.1) Troponin I Quantitative < 0.017ng/mL (0.000-0.055) Lipase 106U/L (73-393) Urine Collection Type Unknown Urine Color Yellow Urine Clarity Clear Urine pH 6.5 Urine Specific [place] 1.015 Urine Protein Negativemg/dL (NEG-TRACE) Urine Glucose (UA) Negativemg/dL (NEG) Urine Ketones (Stick) Negativemg/dL (NEG) Urine Blood Negative (NEG) Urine Nitrite Negative (NEG) Urine Bilirubin Negative (NEG) Urine Urobilinogen Dipstick 1.0mg/dL (0.2 mg/dL) Urine Leukocyte Esterase Small (NEG) Urine RBC Rare/HPF (0-2) Urine WBC Rare/HPF (0-4) Urine Squamous Epithelial Cells Few/LPF Urine Bacteria Few/HPF (0-FEW) Iron Level 13ug/dL (50-170) Total Iron Binding Capacity 475ug/dL (250-450) Iron Saturation 3% (15-34) Ferritin 6ng/mL (8-252) Vitamin B12 Level 492pg/mL (247-911) Serum Folate > 24.00ng/ml (3.2-20.0) Medications Current Medications Sodium Chloride (Iv Sodium Chloride 0.9% 500ml Bag) 500 ml @ 500 mls/hr 1X ONCE IV Last administered on 08/05/16 13:02; Start 08/05/16 at 13:30; Stop at 14:29; Status DC Ondansetron HCl (Zofran) 4 mg PRN Q8HRS PRN IV NAUSEA/VOMITING; Start 08/05/16 at 13:15; Stop 08/05/16 at 14:12; Status DC Morphine Sulfate 2 mg 2 mg PRN Q2HR PRN IV PAIN; Start 08/05/16 at 13:15; Stop 08/06/16 at 13:14 Sodium Chloride (Iv Sodium Chloride 0.9% 1000ml Bag) 1,000 ml @ 100 mls/hr Q10H IV Last administered on 08/05/16 21:12; Start 08/05/16 at 13:30; Stop at 13:29 Ondansetron HCl (Zofran) 4 mg PRN Q6HRS PRN IV NAUSEA/VOMITING; Start 08/05/16 at 14:08 Pantoprazole Sodium (Protonix Vial) 40 mg DAILY IVP Last administered on t 09:13; Start 08/05/16 at 14:30 Lidocaine (Lidoderm) 1 patch PRN DAILY PRN TD back pain; Start 08/05/16 at 14:15 Acetaminophen (Tylenol) 500 mg PRN Q6HRS PRN PO pain; Start 08/05/16 at 14:15 Active Scripts Active Reported Excedrin Migraine Caplet (Aspirin/Acetaminophen/Caffeine) 1 Each Tablet 1 Each PO PRN PRN Vitamin D3 (Cholecalciferol (Vitamin D3)) 2,000 Unit Capsule 2,000 Unit PO Atorvastatin Calcium 10 Mg Tablet 10 Mg PO HS Diovan (Valsartan) 320 Mg Tablet 320 Mg PO DAILY Vitals/I & O Vital Sign - Last 24 Hours 08/05/16 08/05/16 08/05/16 08/05/16 12:32 13:13 14:13 14:43 Temp 97.9 97.9 Pulse 93 92 88 84 Resp 24 B/P 147/40 138/69 140/72 150/75 Pulse Ox 100 96 96 97 O2 Delivery Room Air Room Air Room Air Room Air 08/05/16 08/05/16 08/05/16 08/05/16 15:30 17:50 18:09 18:37 Temp 98.2 98.6 98.5 98.2 98.6 98.5 Pulse 88 85 80 Resp 16 20 16 B/P 142/69 147/76 148/71 Pulse Ox 100 O2 Delivery Room Air Room Air 08/05/16 08/05/16 08/05/16 08/05/16 19:20 20:00 20:20 23:05 Temp 97.6 97.9 97.7 97.6 97.9 97.7 Pulse 80 75 77 Resp 16 16 16 B/P 138/76 148/78 147/69 Pulse Ox 99 O2 Delivery Room Air Room Air 08/06/16 08/06/16 08/06/16 08/06/16 03:05 07:00 08:10 11:00 Temp 97.9 97.7 97.7 97.9 97.7 97.7 Pulse 71 77 83 Resp 18 18 18 B/P 137/65 127/70 146/71 Pulse Ox 97 95 98 O2 Delivery Room Air Room Air Room Air Intake and Output 408/05/16 08/06/16 15:00 23:00 07:00 Intake Total 500 ml 400 ml 0 ml Balance 500 ml 400 ml 0 ml FAHAD MAURICIO MD Aug 06, 2016 12:10
[2016-08-06] MEDS ORDERED: MORPHINE SULFATE 2 MG/ML DISP.SYRIN. IV PRN (12:15)
[2016-08-06] MEDS ORDERED: PROPOFOL 20 ML IV ONE (15:18)
[2016-08-06] MEDS ORDERED: LIDOCAINE 2% PF Vial for OR 5 ML VIAL. ONE (15:18)
--- NOTE | 2016-08-06 15:28 | PDOC4 ---
Operative Note Operative Note EGD Meds propofol 50 mg iv Pre-op dx iron deficiency anemia Post-op dx non-erosive gastritis Plan advance diet oral iron patient defers colonoscopy VARUN BOWEN MD Aug 06, 2016 15:27
[2016-08-06] MEDS: FERROUS SULFATE 325 MG TABLET. PO SCH (17:53)
[2016-08-06 19:59] VITALS: BP 127/68
[2016-08-06] MEDS: ATORVASTATIN CALCIUM 10 MG TABLET. PO SCH (20:54)
[2016-08-06 23:18] VITALS: BP 135/67
[2016-08-07 03:56] VITALS: BP 153/77
[2016-08-07 07:00] VITALS: BP 144/88
[2016-08-07 08:36] LABS: BASO # 0.1 x10^3/uL (0.0-0.2); BASO % 2 % (0-3); EOS % 3 % (0-3); HEMATOCRIT 26.4 % (36.0-47.0); LYMPH # 0.5 x10^3/uL (1.0-4.8); LYMPH % 10 % (24-48); MEAN CORPUSCULAR HEMOGLOBIN 23 pg (25-35); MEAN CORPUSCULAR HGB CONC 30 g/dL (31-37); MEAN CORPUSCULAR VOLUME 78 fL (79-100); MONO % 11 % (0-9); NEUT % 74 % (31-73); PLATELET COUNT 184 x10^3/uL (140-400); RED BLOOD COUNT 3.41 x10^6/uL (3.50-5.40); RED CELL DISTRIBUTION WIDTH 16.3 % (11.5-14.5); WHITE BLOOD COUNT 5.2 x10^3/uL (4.0-11.0)
[2016-08-07 08:50] LABS: CALCIUM 8.7 mg/dL (8.5-10.1); CREATININE 1.1 mg/dL (0.6-1.0); GFR 56.9; POTASSIUM 3.6 mmol/L (3.5-5.1)
[2016-08-07] MEDS: FERROUS SULFATE 325 MG TABLET. PO SCH ×2 (10:00→17:39)
[2016-08-07] MEDS: PANTOPRAZOLE IV PUSH 40 MG VIAL. IVP SCH (10:00)
[2016-08-07 11:00] VITALS: BP 129/65
--- NOTE | 2016-08-07 13:30 | PDOC ---
Subjective: Subjective: Feeling well, no GI complaints, anxious to DC. Not interested in colonoscopy. Objective: Objective: Seen earlier during [employer] downtime. Vital Signs: Vital Signs Date Time Temp Pulse Resp B/P Pulse Ox O2 Delivery O2 Flow Rate FiO2 08/07/16 11:00 97.5 82 18 129/65 98 Room Air 97.5 Labs: Laboratory Tests Test 08/07/16 06:50 08/07/16 07:20 Sodium Level 146mmol/L Potassium Level 3.6mmol/L Chloride Level 112mmol/L Carbon Dioxide Level 21mmol/L Anion Gap 13 Blood Urea Nitrogen 17mg/dL Creatinine 1.1mg/dL Estimated GFR (Cockcroft-Gault) 56.9 Glucose Level 89mg/dL Calcium Level 8.7mg/dL White Blood Count 5.2x10^3/uL Red Blood Count 3.41x10^6/uL Hemoglobin 8.0g/dL Hematocrit 26.4% Mean Corpuscular Volume 78fL Mean Corpuscular Hemoglobin 23pg Mean Corpuscular Hemoglobin Concent 30g/dL Red Cell Distribution Width 16.3% Platelet Count 184x10^3/uL Neutrophils (%) (Auto) 74% Lymphocytes (%) (Auto) 10% Monocytes (%) (Auto) 11% Eosinophils (%) (Auto) 3% Basophils (%) (Auto) 2% Neutrophils # (Auto) 3.8x10^3uL Lymphocytes # (Auto) 0.5x10^3/uL Monocytes # (Auto) 0.6x10^3/uL Eosinophils # (Auto) 0.1x10^3/uL Basophils # (Auto) 0.1x10^3/uL Imaging: EGD 08/06/16: non-erosive gastritis PE: GEN: NAD LUNGS: CTAB HEART: RRR +murm ABD: NABS, S/ND/NT NEURO/PSYCH: A & O 3 A/P: ERIKA -significant drop in Hgb since last year, stable now s/p transfusion -EGD 08/06unrevealing, reports normal colonoscopy 3-4 years ago -PO iron started 08/06 -h/o CKD, follows w/ nephrology -- No upper GI source for anemia on EGD. She declines colonoscopy. Continue iron and monitor labs, DC per primary. SUSHIL ARREDONDO Aug 07, 2016 13:30 VARUN BOWEN MD Aug 07, 2016 14:14
--- NOTE | 2016-08-07 14:47 | PDOC ---
PROGRESS NOTES Chief Complaint Chief Complaint 1. Acute microcytic anemia, acute precipitous drop of hgb - 2/2 GIB likely from small bowel or colon, withlong time NSAID use (off for 6ms) 2. Chronic anemia of CKD - follows with renal q 6 mos 3. Scoliosis 4. Dyslipidemia 5. CKD - crea 1,4 seems baseline 6. HTN 7. MIGRAINE 8. non erosive gastritis PLAn: Admit med tele, 2 mN dc ivf PPI change to po COnsult GI, EGD showed non erosive gastritis cont home meds monitor Hb hold home med for migraine add po iron dc tmr History of Present Illness History of Present Illness no melena or active bleeding taking NSAIDS till 02/2016 takes asa for migraine sometime Hb stable post transfusion 1 upbrc 08/05 Vitals Vitals Vital Signs Date Time Temp Pulse Resp B/P Pulse Ox O2 Delivery O2 Flow Rate FiO2 08/07/16 11:00 97.5 82 18 129/65 98 Room Air 97.5 Physical Exam General: Alert, Oriented X3, Cooperative, No acute distress Heart: Regular rate, Normal S1 Lungs: Clear Abdomen: Normal bowel sounds, Soft, No tenderness, No hepatosplenomegaly, No masses Extremities: No clubbing, No cyanosis, No edema, Normal pulses, No tenderness/ swelling Skin: No rashes, No breakdown, No significant lesion Labs LABS Laboratory Tests Test 08/07/16 06:50 08/07/16 07:20 Sodium Level 146mmol/L (136-145) Potassium Level 3.6mmol/L (3.5-5.1) Chloride Level 112mmol/L (98-107) Carbon Dioxide Level 21mmol/L (21-32) Anion Gap 13 (6-14) Blood Urea Nitrogen 17mg/dL (7-20) Creatinine 1.1mg/dL (0.6-1.0) Estimated GFR (Cockcroft-Gault) 56.9 Glucose Level 89mg/dL (70-99) Calcium Level 8.7mg/dL (8.5-10.1) White Blood Count 5.2x10^3/uL (4.0-11.0) Red Blood Count 3.41x10^6/uL (3.50-5.40) Hemoglobin 8.0g/dL (12.0-15.5) Hematocrit 26.4% (36.0-47.0) Mean Corpuscular Volume 78fL (79-100) Mean Corpuscular Hemoglobin 23pg (25-35) Mean Corpuscular Hemoglobin Concent 30g/dL (31-37) Red Cell Distribution Width 16.3% (11.5-14.5) Platelet Count 184x10^3/uL (140-400) Neutrophils (%) (Auto) 74% (31-73) Lymphocytes (%) (Auto) 10% (24-48) Monocytes (%) (Auto) 11% (0-9) Eosinophils (%) (Auto) 3% (0-3) Basophils (%) (Auto) 2% (0-3) Neutrophils # (Auto) 3.8x10^3uL (1.8-7.7) Lymphocytes # (Auto) 0.5x10^3/uL (1.0-4.8) Monocytes # (Auto) 0.6x10^3/uL (0.0-1.1) Eosinophils # (Auto) 0.1x10^3/uL (0.0-0.7) Basophils # (Auto) 0.1x10^3/uL (0.0-0.2) Review of Systems Review of Systems no fever, chills, sob or chest pain Assessment and Plan Assessmemt and Plan Problems Medical Problems: (1) Anemia Status: Acute (2) GI bleed Status: Acute Problems: Comment Review of Relevant I have reviewed the following items ladonna (where applicable) has been applied. Labs Laboratory Tests Test 08/06/16 03:40 08/07/16 06:50 08/07/16 07:20 White Blood Count 5.7x10^3/uL (4.0-11.0) 5.2x10^3/uL (4.0-11.0) Red Blood Count 3.45x10^6/uL (3.50-5.40) 3.41x10^6/uL (3.50-5.40) Hemoglobin 8.1g/dL (12.0-15.5) 8.0g/dL (12.0-15.5) Hematocrit 26.5% (36.0-47.0) 26.4% (36.0-47.0) Mean Corpuscular Volume 77fL (79-100) 78fL (79-100) Mean Corpuscular Hemoglobin 23pg (25-35) 23pg (25-35) Mean Corpuscular Hemoglobin Concent 30g/dL (31-37) 30g/dL (31-37) Red Cell Distribution Width 16.3% (11.5-14.5) 16.3% (11.5-14.5) Platelet Count 210x10^3/uL (140-400) 184x10^3/uL (140-400) Neutrophils (%) (Auto) 74% (31-73) 74% (31-73) Lymphocytes (%) (Auto) 11% (24-48) 10% (24-48) Monocytes (%) (Auto) 11% (0-9) 11% (0-9) Eosinophils (%) (Auto) 3% (0-3) 3% (0-3) Basophils (%) (Auto) 1% (0-3) 2% (0-3) Neutrophils # (Auto) 4.2x10^3uL (1.8-7.7) 3.8x10^3uL (1.8-7.7) Lymphocytes # (Auto) 0.6x10^3/uL (1.0-4.8) 0.5x10^3/uL (1.0-4.8) Monocytes # (Auto) 0.6x10^3/uL (0.0-1.1) 0.6x10^3/uL (0.0-1.1) Eosinophils # (Auto) 0.2x10^3/uL (0.0-0.7) 0.1x10^3/uL (0.0-0.7) Basophils # (Auto) 0.1x10^3/uL (0.0-0.2) 0.1x10^3/uL (0.0-0.2) Sodium Level 145mmol/L (136-145) 146mmol/L (136-145) Potassium Level 3.9mmol/L (3.5-5.1) 3.6mmol/L (3.5-5.1) Chloride Level 111mmol/L (98-107) 112mmol/L (98-107) Carbon Dioxide Level 21mmol/L (21-32) 21mmol/L (21-32) Anion Gap 13 (6-14) 13 (6-14) Blood Urea Nitrogen 17mg/dL (7-20) 17mg/dL (7-20) Creatinine 1.1mg/dL (0.6-1.0) 1.1mg/dL (0.6-1.0) Estimated GFR (Cockcroft-Gault) 56.9 56.9 Glucose Level 80mg/dL (70-99) 89mg/dL (70-99) Calcium Level 8.8mg/dL (8.5-10.1) 8.7mg/dL (8.5-10.1) Laboratory Tests Test 08/07/16 06:50 08/07/16 07:20 Sodium Level 146mmol/L (136-145) Potassium Level 3.6mmol/L (3.5-5.1) Chloride Level 112mmol/L (98-107) Carbon Dioxide Level 21mmol/L (21-32) Anion Gap 13 (6-14) Blood Urea Nitrogen 17mg/dL (7-20) Creatinine 1.1mg/dL (0.6-1.0) Estimated GFR (Cockcroft-Gault) 56.9 Glucose Level 89mg/dL (70-99) Calcium Level 8.7mg/dL (8.5-10.1) White Blood Count 5.2x10^3/uL (4.0-11.0) Red Blood Count 3.41x10^6/uL (3.50-5.40) Hemoglobin 8.0g/dL (12.0-15.5) Hematocrit 26.4% (36.0-47.0) Mean Corpuscular Volume 78fL (79-100) Mean Corpuscular Hemoglobin 23pg (25-35) Mean Corpuscular Hemoglobin Concent 30g/dL (31-37) Red Cell Distribution Width 16.3% (11.5-14.5) Platelet Count 184x10^3/uL (140-400) Neutrophils (%) (Auto) 74% (31-73) Lymphocytes (%) (Auto) 10% (24-48) Monocytes (%) (Auto) 11% (0-9) Eosinophils (%) (Auto) 3% (0-3) Basophils (%) (Auto) 2% (0-3) Neutrophils # (Auto) 3.8x10^3uL (1.8-7.7) Lymphocytes # (Auto) 0.5x10^3/uL (1.0-4.8) Monocytes # (Auto) 0.6x10^3/uL (0.0-1.1) Eosinophils # (Auto) 0.1x10^3/uL (0.0-0.7) Basophils # (Auto) 0.1x10^3/uL (0.0-0.2) Microbiology 08/05/16 Urine Culture - Final, Complete 08/05/16 Urine Culture Result 1 ([id number]) - Final, Complete Medications Current Medications Sodium Chloride (Iv Sodium Chloride 0.9% 500ml Bag) 500 ml @ 500 mls/hr 1X ONCE IV Last administered on 08/05/16 13:02; Start 08/05/16 at 13:30; Stop at 14:29; Status DC Ondansetron HCl (Zofran) 4 mg PRN Q8HRS PRN IV NAUSEA/VOMITING; Start 08/05/16 at 13:15; Stop 08/05/16 at 14:12; Status DC Morphine Sulfate 2 mg 2 mg PRN Q2HR PRN IV PAIN; Start 08/05/16 at 13:15; Stop 08/06/16 at 12:22; Status DC Sodium Chloride (Iv Sodium Chloride 0.9% 1000ml Bag) 1,000 ml @ 100 mls/hr Q10H IV Last administered on 08/05/16 21:12; Start 08/05/16 at 13:30; Stop at 13:29; Status DC Ondansetron HCl (Zofran) 4 mg PRN Q6HRS PRN IV NAUSEA/VOMITING; Start 08/05/16 at 14:08 Pantoprazole Sodium (Protonix Vial) 40 mg DAILY IVP Last administered on 10:00; Start 08/05/16 at 14:30; Stop 08/07/16 at 13:37; Status DC Lidocaine (Lidoderm) 1 patch PRN DAILY PRN TD back pain; Start 08/05/16 at 14:15 Acetaminophen (Tylenol) 500 mg PRN Q6HRS PRN PO pain; Start 08/05/16 at 14:15 Morphine Sulfate 2 mg PRN Q2HR PRN IV PAIN; Start 08/06/16 at 12:15 Ferrous Sulfate (Feosol) 325 mg BIDWMEALS PO Last administered on 08/07/16t 10: 00; Start 08/06/16 at 17:00 Acetaminophen/ Aspirin/Caffeine (Excedrin Migraine) 1 tab PRN DAILY PRN PO MIGRAINE HEADACHE; Start 08/06/16 at 11:45 Atorvastatin Calcium 10 mg 10 mg HS PO ; Start 08/06/16 at 21:00 Propofol (Diprivan) 20 ml @ As Directed STK-MED ONCE IV ; Start 08/06/16 at 15:18 ; Stop 08/06/16 at 15:19; Status DC Lidocaine HCl (Lidocaine Pf 2% Vial) 5 ml STK-MED ONCE .ROUTE ; Start 08/06/16 at 15:18; Stop 08/06/16 at 15:19; Status DC Pantoprazole Sodium (Protonix) 40 mg DAILYAC PO ; Start 08/08/16 at 07:30 Active Scripts Active Reported Excedrin Migraine Caplet (Aspirin/Acetaminophen/Caffeine) 1 Each Tablet 1 Each PO PRN PRN Vitamin D3 (Cholecalciferol (Vitamin D3)) 2,000 Unit Capsule 2,000 Unit PO Atorvastatin Calcium 10 Mg Tablet 10 Mg PO HS Diovan (Valsartan) 320 Mg Tablet 320 Mg PO DAILY Vitals/I & O Vital Sign - Last 24 Hours 08/06/16 08/06/16 08/06/16 08/06/16 15:11 15:37 15:49 15:55 Temp 98.3 98.7 98.3 98.7 Pulse 85 79 80 84 Resp 20 16 16 16 B/P 140/65 153/78 169/75 Pulse Ox 99 95 97 96 O2 Delivery Room Air Room Air Room Air 08/06/16 08/06/16 08/06/16 08/07/16 19:59 20:00 23:18 03:56 Temp 97.7 97.9 97.7 97.7 97.9 97.7 Pulse 78 72 74 Resp 20 18 18 B/P 127/68 135/67 153/77 Pulse Ox 98 96 97 O2 Delivery Room Air Room Air Room Air Room Air 08/07/16 08/07/16 07:00 11:00 Temp 98.1 97.5 98.1 97.5 Pulse 72 82 Resp 18 18 B/P 144/88 129/65 Pulse Ox 96 98 O2 Delivery Room Air Room Air Intake and Output 08/06/16 08/06/16 08/07/16 15:00 23:00 07:00 Intake Total 0 ml 210 ml Output Total 1 ml Balance 0 ml 209 ml FAHAD MAURICIO MD Aug 07, 2016 14:46
[2016-08-07 15:00] VITALS: BP 131/60
[2016-08-07 19:46] VITALS: BP 139/74
[2016-08-07] MEDS: ATORVASTATIN CALCIUM 10 MG TABLET. PO SCH (21:35)
[2016-08-07 23:48] VITALS: BP 138/79
[2016-08-08 07:00] VITALS: BP 144/80
[2016-08-08] MEDS: PANTOPRAZOLE 40 MG TABLET.DR. PO SCH (08:49)
[2016-08-08] MEDS: FERROUS SULFATE 325 MG TABLET. PO SCH ×2 (08:49→17:27)
[2016-08-08 10:17] LABS: BASO # 0.1 x10^3/uL (0.0-0.2); BASO % 1 % (0-3); EOS % 1 % (0-3); HEMATOCRIT 27.4 % (36.0-47.0); HEMOGLOBIN 8.5 g/dL (12.0-15.5); LYMPH # 0.4 x10^3/uL (1.0-4.8); LYMPH % 5 % (24-48); MEAN CORPUSCULAR HEMOGLOBIN 24 pg (25-35); MEAN CORPUSCULAR HGB CONC 31 g/dL (31-37); MEAN CORPUSCULAR VOLUME 76 fL (79-100); MONO % 9 % (0-9); NEUT % 84 % (31-73); PLATELET COUNT 187 x10^3/uL (140-400); RED CELL DISTRIBUTION WIDTH 16.6 % (11.5-14.5); WHITE BLOOD COUNT 7.7 x10^3/uL (4.0-11.0)
[2016-08-08 11:00] VITALS: BP 144/69
--- NOTE | 2016-08-08 11:21 | PDOC ---
Subjective: Subjective: No GI complaints. Objective: Objective: D/w RN and Dr. Wade - DC held for right knee swelling. Vital Signs: Vital Signs Date Time Temp Pulse Resp B/P Pulse Ox O2 Delivery O2 Flow Rate FiO2 08/08/16 08:00 Room Air 08/08/16 07:00 98.4 77 18 144/80 97 98.4 Labs: Laboratory Tests Test 08/08/16 09:55 White Blood Count 7.7x10^3/uL Red Blood Count 3.60x10^6/uL Hemoglobin 8.5g/dL Hematocrit 27.4% Mean Corpuscular Volume 76fL Mean Corpuscular Hemoglobin 24pg Mean Corpuscular Hemoglobin Concent 31g/dL Red Cell Distribution Width 16.6% Platelet Count 187x10^3/uL Neutrophils (%) (Auto) 84% Lymphocytes (%) (Auto) 5% Monocytes (%) (Auto) 9% Eosinophils (%) (Auto) 1% Basophils (%) (Auto) 1% Neutrophils # (Auto) 6.5x10^3uL Lymphocytes # (Auto) 0.4x10^3/uL Monocytes # (Auto) 0.7x10^3/uL Eosinophils # (Auto) 0.1x10^3/uL Basophils # (Auto) 0.1x10^3/uL PE: GEN: NAD LUNGS: CTAB HEART: S1S2 ABD: S/ND/NT NEURO/PSYCH: A & O 3 A/P: ERIKA -significant drop in Hgb since last year, stable/improving now s/p transfusion -EGD 08/06 unrevealing, reports normal colonoscopy 3-4 years ago -PO iron started 08/06 -h/o CKD, follows w/ nephrology Right knee swelling -- No upper GI source for anemia on EGD. She declines colonoscopy. Continue iron and monitor labs. DC per primary. SUSHIL ARREDONDO Aug 08, 2016 11:21
--- NOTE | 2016-08-08 11:21 | PDOC ---
PROGRESS NOTES Chief Complaint Chief Complaint 1. Acute microcytic anemia, acute precipitous drop of hgb - 2/2 GIB likely from small bowel or colon, withlong time NSAID use (off for 6ms) 2. Chronic anemia of CKD - follows with renal q 6 mos 3. Scoliosis 4. Dyslipidemia 5. CKD - crea 1,4 seems baseline 6. HTN 7. MIGRAINE 8. non erosive gastritis 9. right knee pain, likely 2/2 OA PLAn: Admit med tele, 2 mN dc ivf PPI change to po COnsult GI, EGD showed non erosive gastritis cont home meds monitor Hb hold home med for migraine add po iron dr. Kinney consult, check right knee XR dc tmr History of Present Illness History of Present Illness no melena or active bleeding taking NSAIDS till 02/2016 takes asa for migraine sometime Hb stable post transfusion 1 upbrc 4/3 new right knee pain with swelling Vitals Vitals Vital Signs Date Time Temp Pulse Resp B/P Pulse Ox O2 Delivery O2 Flow Rate FiO2 08/08/16 08:00 Room Air 08/08/16 07:00 98.4 77 18 144/80 97 98.4 Physical Exam General: Alert, Oriented X3, Cooperative, No acute distress Heart: Regular rate, Normal S1 Lungs: Clear Abdomen: Normal bowel sounds, Soft, No tenderness, No hepatosplenomegaly, No masses Extremities: No cyanosis, Normal pulses, Other (right knee swelling, + tenderness) Skin: No rashes, No breakdown, No significant lesion Labs LABS Laboratory Tests Test 08/08/16 09:55 White Blood Count 7.7x10^3/uL (4.0-11.0) Red Blood Count 3.60x10^6/uL (3.50-5.40) Hemoglobin 8.5g/dL (12.0-15.5) Hematocrit 27.4% (36.0-47.0) Mean Corpuscular Volume 76fL (79-100) Mean Corpuscular Hemoglobin 24pg (25-35) Mean Corpuscular Hemoglobin Concent 31g/dL (31-37) Red Cell Distribution Width 16.6% (11.5-14.5) Platelet Count 187x10^3/uL (140-400) Neutrophils (%) (Auto) 84% (31-73) Lymphocytes (%) (Auto) 5% (24-48) Monocytes (%) (Auto) 9% (0-9) Eosinophils (%) (Auto) 1% (0-3) Basophils (%) (Auto) 1% (0-3) Neutrophils # (Auto) 6.5x10^3uL (1.8-7.7) Lymphocytes # (Auto) 0.4x10^3/uL (1.0-4.8) Monocytes # (Auto) 0.7x10^3/uL (0.0-1.1) Eosinophils # (Auto) 0.1x10^3/uL (0.0-0.7) Basophils # (Auto) 0.1x10^3/uL (0.0-0.2) Review of Systems Review of Systems no fever, chills, sob or chest pain Assessment and Plan Assessmemt and Plan Problems Medical Problems: (1) Anemia Status: Acute (2) GI bleed Status: Acute Problems: Comment Review of Relevant I have reviewed the following items ladonna (where applicable) has been applied. Labs Laboratory Tests Test 08/07/16 06:50 08/07/16 07:20 08/08/16 09:55 Sodium Level 146mmol/L (136-145) Potassium Level 3.6mmol/L (3.5-5.1) Chloride Level 112mmol/L (98-107) Carbon Dioxide Level 21mmol/L (21-32) Anion Gap 13 (6-14) Blood Urea Nitrogen 17mg/dL (7-20) Creatinine 1.1mg/dL (0.6-1.0) Estimated GFR (Cockcroft-Gault) 56.9 Glucose Level 89mg/dL (70-99) Calcium Level 8.7mg/dL (8.5-10.1) White Blood Count 5.2x10^3/uL (4.0-11.0) 7.7x10^3/uL (4.0-11.0) Red Blood Count 3.41x10^6/uL (3.50-5.40) 3.60x10^6/uL (3.50-5.40) Hemoglobin 8.0g/dL (12.0-15.5) 8.5g/dL (12.0-15.5) Hematocrit 26.4% (36.0-47.0) 27.4% (36.0-47.0) Mean Corpuscular Volume 78fL (79-100) 76fL (79-100) Mean Corpuscular Hemoglobin 23pg (25-35) 24pg (25-35) Mean Corpuscular Hemoglobin Concent 30g/dL (31-37) 31g/dL (31-37) Red Cell Distribution Width 16.3% (11.5-14.5) 16.6% (11.5-14.5) Platelet Count 184x10^3/uL (140-400) 187x10^3/uL (140-400) Neutrophils (%) (Auto) 74% (31-73) 84% (31-73) Lymphocytes (%) (Auto) 10% (24-48) 5% (24-48) Monocytes (%) (Auto) 11% (0-9) 9% (0-9) Eosinophils (%) (Auto) 3% (0-3) 1% (0-3) Basophils (%) (Auto) 2% (0-3) 1% (0-3) Neutrophils # (Auto) 3.8x10^3uL (1.8-7.7) 6.5x10^3uL (1.8-7.7) Lymphocytes # (Auto) 0.5x10^3/uL (1.0-4.8) 0.4x10^3/uL (1.0-4.8) Monocytes # (Auto) 0.6x10^3/uL (0.0-1.1) 0.7x10^3/uL (0.0-1.1) Eosinophils # (Auto) 0.1x10^3/uL (0.0-0.7) 0.1x10^3/uL (0.0-0.7) Basophils # (Auto) 0.1x10^3/uL (0.0-0.2) 0.1x10^3/uL (0.0-0.2) Laboratory Tests Test 08/08/16 09:55 White Blood Count 7.7x10^3/uL (4.0-11.0) Red Blood Count 3.60x10^6/uL (3.50-5.40) Hemoglobin 8.5g/dL (12.0-15.5) Hematocrit 27.4% (36.0-47.0) Mean Corpuscular Volume 76fL (79-100) Mean Corpuscular Hemoglobin 24pg (25-35) Mean Corpuscular Hemoglobin Concent 31g/dL (31-37) Red Cell Distribution Width 16.6% (11.5-14.5) Platelet Count 187x10^3/uL (140-400) Neutrophils (%) (Auto) 84% (31-73) Lymphocytes (%) (Auto) 5% (24-48) Monocytes (%) (Auto) 9% (0-9) Eosinophils (%) (Auto) 1% (0-3) Basophils (%) (Auto) 1% (0-3) Neutrophils # (Auto) 6.5x10^3uL (1.8-7.7) Lymphocytes # (Auto) 0.4x10^3/uL (1.0-4.8) Monocytes # (Auto) 0.7x10^3/uL (0.0-1.1) Eosinophils # (Auto) 0.1x10^3/uL (0.0-0.7) Basophils # (Auto) 0.1x10^3/uL (0.0-0.2) Microbiology 08/05/16 Urine Culture - Final, Complete 08/05/16 Urine Culture Result 1 (KAILYN) - Final, Complete Medications Current Medications Sodium Chloride (Iv Sodium Chloride 0.9% 500ml Bag) 500 ml @ 500 mls/hr 1X ONCE IV Last administered on 08/05/16 13:02; Start 08/05/16 at 13:30; Stop at 14:29; Status DC Ondansetron HCl (Zofran) 4 mg PRN Q8HRS PRN IV NAUSEA/VOMITING; Start 08/05/16 at 13:15; Stop 08/05/16 at 14:12; Status DC Morphine Sulfate 2 mg 2 mg PRN Q2HR PRN IV PAIN; Start 08/05/16 at 13:15; Stop 08/06/16 at 12:22; Status DC Sodium Chloride (Iv Sodium Chloride 0.9% 1000ml Bag) 1,000 ml @ 100 mls/hr Q10H IV Last administered on 08/05/16 21:12; Start 08/05/16 at 13:30; Stop at 13:29; Status DC Ondansetron HCl (Zofran) 4 mg PRN Q6HRS PRN IV NAUSEA/VOMITING; Start 08/05/16 at 14:08 Pantoprazole Sodium (Protonix Vial) 40 mg DAILY IVP Last administered on 10:00; Start 08/05/16 at 14:30; Stop 08/07/16 at 13:37; Status DC Lidocaine (Lidoderm) 1 patch PRN DAILY PRN TD back pain; Start 08/05/16 at 14:15 Acetaminophen (Tylenol) 500 mg PRN Q6HRS PRN PO pain Last administered on 08:49; Start 08/05/16 at 14:15 Morphine Sulfate 2 mg PRN Q2HR PRN IV PAIN; Start 08/06/16 at 12:15 Ferrous Sulfate (Feosol) 325 mg BIDWMEALS PO Last administered on 08/08/16 08: 49; Start 08/06/16 at 17:00 Acetaminophen/ Aspirin/Caffeine (Excedrin Migraine) 1 tab PRN DAILY PRN PO MIGRAINE HEADACHE; Start 08/06/16 at 11:45 Atorvastatin Calcium 10 mg 10 mg HS PO Last administered on 08/07/16 21:35; Start 08/06/16 at 21:00 Propofol (Diprivan) 20 ml @ As Directed STK-MED ONCE IV ; Start 08/06/16 at 15:18 ; Stop 08/06/16 at 15:19; Status DC Lidocaine HCl (Lidocaine Pf 2% Vial) 5 ml STK-MED ONCE .ROUTE ; Start 08/06/16 at 15:18; Stop 08/06/16 at 15:19; Status DC Pantoprazole Sodium (Protonix) 40 mg DAILYAC PO Last administered on 08/08/16 08:49; Start 08/08/16 at 07:30 Active Scripts Active Reported Excedrin Migraine Caplet (Aspirin/Acetaminophen/Caffeine) 1 Each Tablet 1 Each PO PRN PRN Vitamin D3 (Cholecalciferol (Vitamin D3)) 2,000 Unit Capsule 2,000 Unit PO Atorvastatin Calcium 10 Mg Tablet 10 Mg PO HS Diovan (Valsartan) 320 Mg Tablet 320 Mg PO DAILY Vitals/I & O Vital Sign - Last 24 Hours 08/07/16 08/07/16 08/07/16 08/07/16 15:00 19:46 20:00 23:48 Temp 97.9 97.7 97.9 97.9 97.7 97.9 Pulse 77 80 78 Resp 18 16 16 B/P 131/60 139/74 138/79 Pulse Ox 98 98 98 O2 Delivery Room Air Room Air Room Air Room Air 08/08/16 08/08/16 08/08/16 03:00 07:00 08:00 Temp 98.4 98.4 Pulse 77 Resp 18 B/P 144/80 Pulse Ox 97 O2 Delivery Room Air Room Air Room Air Intake and Output 08/07/16 08/07/16 08/08/16 15:00 23:00 07:00 Intake Total 760 ml Balance 760 ml FAHAD MAURICIO MD Aug 08, 2016 11:20
--- NOTE | 2016-08-08 14:48 | RAD ---
Portable right knee, 2 views, 08/08/2016: History: Right knee swelling The bony structures are demineralized. There is considerable joint space narrowing, subchondral sclerosis and marginal spurring at the knee joint, greatest laterally. There is severe degenerative change at the patellofemoral articulation. No acute fracture or dislocation is evident. There are periarticular calcifications extending into the suprapatellar bursa region suggesting loose bodies. There appears to be a large joint effusion. Scattered vascular calcifications are present. Moderate subcutaneous edema is noted. IMPRESSION: 1. Severe degenerative change with loose bodies in the joint and a large joint effusion. 2. No acute bony abnormality is detected.
[2016-08-08 15:00] VITALS: BP 119/38
[2016-08-08] MEDS ORDERED: ETHYL ALCOHOL 98% 5 ML VIAL. IJ ONE (17:15)
--- NOTE | 2016-08-08 17:28 | PDOC4 ---
PROCEDURE Procedure Ather rquest,I have injected her right knee with marcaine and depomedrol solution under asptic skin technique and she tolerated the procedure satisfactorily without any side effects. TOMÁS HALL MD Aug 08, 2016 17:28
[2016-08-08] MEDS ORDERED: BUPIVACAINE MPF 0.25% 10 ML VIAL. IJ ONE (17:30)
[2016-08-08] MEDS ORDERED: methylPREDNISolone ACETATE 80 MG/ML VIAL. IM ONE (17:30)
[2016-08-08 19:56] VITALS: BP 126/64
[2016-08-08] MEDS: ATORVASTATIN CALCIUM 10 MG TABLET. PO SCH (22:08)
[2016-08-08 23:10] VITALS: BP 139/74
--- NOTE | 2016-08-09 04:44 | CONS ---
DATE OF CONSULTATION: I saw her on 08/08/2016 at the request of Dr. Gongora. She is in room 648. HISTORY OF PRESENT ILLNESS: This is an 85-year-old right-handed female known to me. The patient with chronic kidney disease being followed by Dr. Matute, was noted with hemoglobin dropped from 11 to 7 grams, was seen in the Emergency Room. No reports of melena, but has been taking [id number] Naprosyn daily for her scoliosis also takes hyperlipidemic agent at home. She was noted in the Emergency Room with hemoglobin of 6.9 except for mild tachycardia. She walked to the bathroom with no presyncopal symptoms. Denies any tiredness feeling. She apparently lost about 10 pounds of weight in the past few months, but claims not a big eater too. Last colonoscopy were done about 3 years ago was normal. The patient since admission had an EGD, which revealed non erosive gastritis. The patient woke up this morning with pain and stiffness and swelling of her right knee difficult to get up and walk. She denies any significant knee pain before. PHYSICAL EXAMINATION: Today, revealed she is alert, oriented to time, place, person and circumstance and follows commands appropriately, moves all 4 extremities voluntarily. She is keeping her right knee somewhat stiff, pain on range of motion of her right knee, crepitus on range of motion of right knee, some laxity of knee joint collateral ligament. She had right knee joint effusion. She had overall 4+/5 grade muscle strength and deep tendon reflexes are absent at both ankles and 2+ at both knees. She had equal perception of touch and pinprick sensation bilaterally. She had pain free range of motion of the left knee and both hip joints. I have not tested her ambulation skills at this time. She also had some deformities of both thumbs secondary to degenerative changes at thumb carpometacarpal joints with some muscle atrophy involving thenar eminence muscles. Negative Tinel's sign over median nerve at the wrist and over ulnar nerve at the wrist and elbow. 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 RECOMMENDATION: To proceed with injecting painful right knee joint and also to get her hinged knee brace for use while up and probably she needs to use a cane or walker while up walking. Dr. Gongora, I appreciate asking me to participate in the care of this interesting patient. I will be glad to follow her with you as needed for her rehabilitation. TOMÁS HALL MD DR: TREY/hans JOB#: [id number] / [id number]
[2016-08-09 06:45] LABS: BASO % 1 % (0-3); EOS % 0 % (0-3); HEMATOCRIT 29.9 % (36.0-47.0); LYMPH # 0.3 x10^3/uL (1.0-4.8); LYMPH % 5 % (24-48); MEAN CORPUSCULAR HEMOGLOBIN 24 pg (25-35); MEAN CORPUSCULAR HGB CONC 30 g/dL (31-37); MEAN CORPUSCULAR VOLUME 78 fL (79-100); MONO % 2 % (0-9); NEUT % 93 % (31-73); PLATELET COUNT 184 x10^3/uL (140-400); RED BLOOD COUNT 3.84 x10^6/uL (3.50-5.40); RED CELL DISTRIBUTION WIDTH 16.2 % (11.5-14.5); WHITE BLOOD COUNT 6.4 x10^3/uL (4.0-11.0)
[2016-08-09 06:59] LABS: CALCIUM 9.3 mg/dL (8.5-10.1); CREATININE 0.9 mg/dL (0.6-1.0); GFR 71.7; POTASSIUM 4.4 mmol/L (3.5-5.1)
[2016-08-09 07:00] VITALS: BP 161/87
[2016-08-09] MEDS: PANTOPRAZOLE 40 MG TABLET.DR. PO SCH (07:51)
[2016-08-09] MEDS: FERROUS SULFATE 325 MG TABLET. PO SCH (07:51)
[2016-08-09] MEDS ORDERED: DICLOFENAC SODIUM 1% TOPICAL GEL 100GM TUBE. TP SCH (09:00)
--- NOTE | 2016-08-09 09:02 | RAD ---
AP standing knees, 08/09/2016: History: Painful right knee AP standing views of both knees were obtained as requested. The images are correlated with yesterday's AP and lateral views of the right knee. There is moderate narrowing of the knee joint space on the right, most prominent laterally. There is moderate marginal spurring and chondrocalcinosis. A large right knee joint effusion and calcific loose bodies were better demonstrated on yesterday's images. No acute fracture or dislocation is identified. There is mild joint space narrowing and marginal spurring on the left. There is chondrocalcinosis on the left. The limited exam of the left knee is otherwise unremarkable. IMPRESSION: 1. Severe degenerative change at the right knee with a large joint effusion and calcific loose bodies. 2. Moderate degenerative change at the left knee.
--- NOTE | 2016-08-09 09:08 | PDOC ---
PROGRESS NOTES Subjective Subjective No new complaints. Objective Objective Vital Signs Date Time Temp Pulse Resp B/P Pulse Ox O2 Delivery O2 Flow Rate FiO2 08/09/16 07:57 Room Air 08/09/16 07:00 97.9 79 18 161/87 95 97.9 Intake and Output 08/09/16 07:00 Intake Total 2150 ml Balance 2150 ml Intake Oral 2150 ml # Voids 3 Physical Exam Physical Exam She is walking without much knee pain.She had severe DJD of both knees,right > left. Assessment Assessment Problems Medical Problems: (1) Anemia Status: Acute (2) GI bleed Status: Acute Plan Plan of Care I have advised her to use knee brace and cane or walker while up and home when medically stable. Comment Review of Relevant I have reviewed the following items ladonna (where applicable) has been applied. Labs Laboratory Tests Test 08/08/16 09:55 08/09/16 06:30 White Blood Count 7.7x10^3/uL (4.0-11.0) 6.4x10^3/uL (4.0-11.0) Red Blood Count 3.60x10^6/uL (3.50-5.40) 3.84x10^6/uL (3.50-5.40) Hemoglobin 8.5g/dL (12.0-15.5) 9.0g/dL (12.0-15.5) Hematocrit 27.4% (36.0-47.0) 29.9% (36.0-47.0) Mean Corpuscular Volume 76fL (79-100) 78fL (79-100) Mean Corpuscular Hemoglobin 24pg (25-35) 24pg (25-35) Mean Corpuscular Hemoglobin Concent 31g/dL (31-37) 30g/dL (31-37) Red Cell Distribution Width 16.6% (11.5-14.5) 16.2% (11.5-14.5) Platelet Count 187x10^3/uL (140-400) 184x10^3/uL (140-400) Neutrophils (%) (Auto) 84% (31-73) 93% (31-73) Lymphocytes (%) (Auto) 5% (24-48) 5% (24-48) Monocytes (%) (Auto) 9% (0-9) 2% (0-9) Eosinophils (%) (Auto) 1% (0-3) 0% (0-3) Basophils (%) (Auto) 1% (0-3) 1% (0-3) Neutrophils # (Auto) 6.5x10^3uL (1.8-7.7) 5.9x10^3uL (1.8-7.7) Lymphocytes # (Auto) 0.4x10^3/uL (1.0-4.8) 0.3x10^3/uL (1.0-4.8) Monocytes # (Auto) 0.7x10^3/uL (0.0-1.1) 0.1x10^3/uL (0.0-1.1) Eosinophils # (Auto) 0.1x10^3/uL (0.0-0.7) 0.0x10^3/uL (0.0-0.7) Basophils # (Auto) 0.1x10^3/uL (0.0-0.2) 0.0x10^3/uL (0.0-0.2) Sodium Level 142mmol/L (136-145) Potassium Level 4.4mmol/L (3.5-5.1) Chloride Level 109mmol/L (98-107) Carbon Dioxide Level 24mmol/L (21-32) Anion Gap 9 (6-14) Blood Urea Nitrogen 17mg/dL (7-20) Creatinine 0.9mg/dL (0.6-1.0) Estimated GFR (Cockcroft-Gault) 71.7 Glucose Level 183mg/dL (70-99) Calcium Level 9.3mg/dL (8.5-10.1) Laboratory Tests Test 08/08/16 09:55 08/09/16 06:30 White Blood Count 7.7x10^3/uL (4.0-11.0) 6.4x10^3/uL (4.0-11.0) Red Blood Count 3.60x10^6/uL (3.50-5.40) 3.84x10^6/uL (3.50-5.40) Hemoglobin 8.5g/dL (12.0-15.5) 9.0g/dL (12.0-15.5) Hematocrit 27.4% (36.0-47.0) 29.9% (36.0-47.0) Mean Corpuscular Volume 76fL (79-100) 78fL (79-100) Mean Corpuscular Hemoglobin 24pg (25-35) 24pg (25-35) Mean Corpuscular Hemoglobin Concent 31g/dL (31-37) 30g/dL (31-37) Red Cell Distribution Width 16.6% (11.5-14.5) 16.2% (11.5-14.5) Platelet Count 187x10^3/uL (140-400) 184x10^3/uL (140-400) Neutrophils (%) (Auto) 84% (31-73) 93% (31-73) Lymphocytes (%) (Auto) 5% (24-48) 5% (24-48) Monocytes (%) (Auto) 9% (0-9) 2% (0-9) Eosinophils (%) (Auto) 1% (0-3) 0% (0-3) Basophils (%) (Auto) 1% (0-3) 1% (0-3) Neutrophils # (Auto) 6.5x10^3uL (1.8-7.7) 5.9x10^3uL (1.8-7.7) Lymphocytes # (Auto) 0.4x10^3/uL (1.0-4.8) 0.3x10^3/uL (1.0-4.8) Monocytes # (Auto) 0.7x10^3/uL (0.0-1.1) 0.1x10^3/uL (0.0-1.1) Eosinophils # (Auto) 0.1x10^3/uL (0.0-0.7) 0.0x10^3/uL (0.0-0.7) Basophils # (Auto) 0.1x10^3/uL (0.0-0.2) 0.0x10^3/uL (0.0-0.2) Sodium Level 142mmol/L (136-145) Potassium Level 4.4mmol/L (3.5-5.1) Chloride Level 109mmol/L (98-107) Carbon Dioxide Level 24mmol/L (21-32) Anion Gap 9 (6-14) Blood Urea Nitrogen 17mg/dL (7-20) Creatinine 0.9mg/dL (0.6-1.0) Estimated GFR (Cockcroft-Gault) 71.7 Glucose Level 183mg/dL (70-99) Calcium Level 9.3mg/dL (8.5-10.1) Microbiology 08/05/16 Urine Culture - Final, Complete 08/05/16 Urine Culture Result 1 (KAILYN) - Final, Complete Medications Current Medications Sodium Chloride (Iv Sodium Chloride 0.9% 500ml Bag) 500 ml @ 500 mls/hr 1X ONCE IV Last administered on 08/05/16 13:02; Start 08/05/16 at 13:30; Stop at 14:29; Status DC Ondansetron HCl (Zofran) 4 mg PRN Q8HRS PRN IV NAUSEA/VOMITING; Start 08/05/16 at 13:15; Stop 08/05/16 at 14:12; Status DC Morphine Sulfate 2 mg 2 mg PRN Q2HR PRN IV PAIN; Start 08/05/16 at 13:15; Stop 08/06/16 at 12:22; Status DC Sodium Chloride (Iv Sodium Chloride 0.9% 1000ml Bag) 1,000 ml @ 100 mls/hr Q10H IV Last administered on 08/05/16 21:12; Start 08/05/16 at 13:30; Stop at 13:29; Status DC Ondansetron HCl (Zofran) 4 mg PRN Q6HRS PRN IV NAUSEA/VOMITING; Start 08/05/16 at 14:08 Pantoprazole Sodium (Protonix Vial) 40 mg DAILY IVP Last administered on 10:00; Start 08/05/16 at 14:30; Stop 08/07/16 at 13:37; Status DC Lidocaine (Lidoderm) 1 patch PRN DAILY PRN TD back pain; Start 08/05/16 at 14:15 Acetaminophen (Tylenol) 500 mg PRN Q6HRS PRN PO pain Last administered on 08:49; Start 08/05/16 at 14:15 Morphine Sulfate 2 mg PRN Q2HR PRN IV PAIN; Start 08/06/16 at 12:15 Ferrous Sulfate (Feosol) 325 mg BIDWMEALS PO Last administered on 08/09/16 07: 51; Start 08/06/16 at 17:00 Acetaminophen/ Aspirin/Caffeine (Excedrin Migraine) 1 tab PRN DAILY PRN PO MIGRAINE HEADACHE; Start 08/06/16 at 11:45 Atorvastatin Calcium 10 mg 10 mg HS PO Last administered on 08/08/16 22:08; Start 08/06/16 at 21:00 Propofol (Diprivan) 20 ml @ As Directed STK-MED ONCE IV ; Start 08/06/16 at 15:18 ; Stop 08/06/16 at 15:19; Status DC Lidocaine HCl (Lidocaine Pf 2% Vial) 5 ml STK-MED ONCE .ROUTE ; Start 08/06/16 at 15:18; Stop 08/06/16 at 15:19; Status DC Pantoprazole Sodium (Protonix) 40 mg DAILYAC PO Last administered on 08/09/16 07:51; Start 08/08/16 at 07:30 Methylprednisolone Acetate (Depo-Medrol 80mg Vial) 80 mg 1X ONCE IM Last administered on 08/08/16 17:29; Start 08/08/16 at 17:30; Stop 08/08/16 at 17:31; Status DC Bupivacaine HCl (Sensorcaine-Mpf 0.25%) 10 ml 1X ONCE IJ Last administered on 08/08/16 17:29; Start 08/08/16 at 17:30; Stop 08/08/16 at 17:31; Status DC Diclofenac Sodium (Voltaren) 1 stacey DAILY TP Last administered on 08/09/16 07:52 ; Start 08/09/16 at 09:00 Alcohol (Alcohol,Dehydrated) 5 ml 1X ONCE IJ ; Start 08/08/16 at 17:15; Stop 08/08/16 at 17:16; Status Cancel Active Scripts Active Reported Excedrin Migraine Caplet (Aspirin/Acetaminophen/Caffeine) 1 Each Tablet 1 Each PO PRN PRN Vitamin D3 (Cholecalciferol (Vitamin D3)) 2,000 Unit Capsule 2,000 Unit PO Atorvastatin Calcium 10 Mg Tablet 10 Mg PO HS Diovan (Valsartan) 320 Mg Tablet 320 Mg PO DAILY Vitals/I & O Vital Sign - Last 24 Hours 08/08/16 08/08/16 08/08/16 08/08/16 11:00 15:00 19:56 20:00 Temp 98.1 98.0 98.6 98.1 98.0 98.6 Pulse 76 70 83 Resp 18 18 16 B/P 144/69 119/38 126/64 Pulse Ox 98 98 97 O2 Delivery Room Air Room Air Room Air Room Air 08/08/16 08/09/16 08/09/16 23:10 07:00 07:57 Temp 97.5 97.9 97.5 97.9 Pulse 76 79 Resp 16 18 B/P 139/74 161/87 Pulse Ox 97 95 O2 Delivery Room Air Room Air Room Air Intake and Output 08/08/16 08/08/16 08/09/16 15:00 23:00 07:00 Intake Total 960 ml 990 ml 200 ml Balance 960 ml 990 ml 200 ml TOMÁS HALL MD Aug 09, 2016 09:08
[2016-08-09 09:13] LABS: PLT ESTIMATE ADEQUATE (ADEQUATE)
[2016-08-09] MEDS ORDERED: FERR-26 PO (10:05)
[2016-08-09] MEDS ORDERED: PANT40TA5 PO (10:05)
--- NOTE | 2016-08-09 10:37 | PDOC3 ---
Discharge Summary [facility] Date of Admission: Aug 05, 2016 Discharge Date: Aug 09, 2016 Admitting Diagnosis 1. Acute microcytic anemia, acute precipitous drop of hgb - 2/2 GIB likely from small bowel or colon, withlong time NSAID use (off for 6ms) 2. Chronic anemia of CKD - follows with renal q 6 mos 3. Scoliosis 4. Dyslipidemia 5. 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 HTN 7. MIGRAINE 8. non erosive gastritis 9. right knee pain, 2/2 OA Problems: Final Diagnosis CONSULTS gi dr. Kinney Procedures EGD Brief Hospital Course Ms. Do is a 85 old F, was sent from office for Hb 7. Hb 6.7 here, no active bleeding. Anemia could be 2/2 GIB with long time NSAIDS taking, off for 6m tho. EGD done , non erosive gastritis. pt refused colonoscopy. no melena. Hb stable post transfusion. pt developed severe right knee pain with swelling, XR showed severe OA. better with steroid injection by dr. Kinney. dc home with protonix, iron. dc time 40min General: Alert, Oriented X3, Cooperative, No acute distress Heart: Regular rate, Normal S1 Lungs: Clear Abdomen: Normal bowel sounds, Soft, No tenderness, No hepatosplenomegaly, No masses Extremities: No cyanosis, Normal pulses, Other (right knee swelling better, + tenderness) Skin: No rashes, No breakdown, No significant lesion Problems: Disposition home CONDITION AT DISCHARGE: Improved Diet regular Scheduled Atorvastatin Calcium (Atorvastatin Calcium) 10 MG PO HS (Reported) Ferrous Sulfate (Ferrous Sulfate) 325 MG PO BIDWMEALS Pantoprazole Sodium (Pantoprazole Sodium) 40 MG PO DAILYAC Scheduled PRN Aspirin/Acetaminophen/Caffeine (Excedrin Migraine Caplet) 1 EACH PO PRN PRN PRN MIGRAINE HEADACHE (Reported) Miscellaneous Medications Cholecalciferol (Vitamin D3) (Vitamin D3) 2,000 UNIT PO (Reported) Discontinued Medications Valsartan (Diovan) 320 MG PO DAILY (Reported) Follow Up pcp in 2 weeks FAHAD MAURICIO MD Aug 09, 2016 10:37
--- NOTE | 2016-08-09 10:56 | PDOC ---
Subjective: Subjective: Knee feels better, ready to DC. Objective: Vital Signs: Vital Signs Date Time Temp Pulse Resp B/P Pulse Ox O2 Delivery O2 Flow Rate FiO2 08/09/16 07:57 Room Air 08/09/16 07:00 97.9 79 18 161/87 95 97.9 Labs: Laboratory Tests Test 08/09/16 06:30 White Blood Count 6.4x10^3/uL Red Blood Count 3.84x10^6/uL Hemoglobin 9.0g/dL Hematocrit 29.9% Mean Corpuscular Volume 78fL Mean Corpuscular Hemoglobin 24pg Mean Corpuscular Hemoglobin Concent 30g/dL Red Cell Distribution Width 16.2% Platelet Count 184x10^3/uL Neutrophils (%) (Auto) 93% Lymphocytes (%) (Auto) 5% Monocytes (%) (Auto) 2% Eosinophils (%) (Auto) 0% Basophils (%) (Auto) 1% Neutrophils # (Auto) 5.9x10^3uL Lymphocytes # (Auto) 0.3x10^3/uL Monocytes # (Auto) 0.1x10^3/uL Eosinophils # (Auto) 0.0x10^3/uL Basophils # (Auto) 0.0x10^3/uL Segmented Neutrophils % 86% Band Neutrophils % 2% Lymphocytes % 11% Monocytes % 1% Platelet Estimate Adequate Sodium Level 142mmol/L Potassium Level 4.4mmol/L Chloride Level 109mmol/L Carbon Dioxide Level 24mmol/L Anion Gap 9 Blood Urea Nitrogen 17mg/dL Creatinine 0.9mg/dL Estimated GFR (Cockcroft-Gault) 71.7 Glucose Level 183mg/dL Calcium Level 9.3mg/dL Imaging: Knee X-Ray IMPRESSION: 1. Severe degenerative change at the right knee with a large joint effusion and calcific loose bodies. 2. Moderate degenerative change at the left knee. PE: GEN: NAD LUNGS: CTAB HEART: RRR ABD: S/ND/NT NEURO/PSYCH: A & O 3 A/P: ERIKA -significant drop in Hgb since last year, improved now s/p transfusion -EGD 08/06 unrevealing, reports normal colonoscopy 3-4 years ago -PO iron started 08/06 -h/o CKD, follows w/ nephrology -- No upper GI source for anemia on EGD. She declines colonoscopy/further workup. Continue iron and monitor labs. DC per primary. SUSHIL ARREDONDO Aug 09, 2016 10:56
[2016-08-09 11:00] VITALS: BP 149/73
== END 2016-08-09 12:40 | disposition home or self-care (01) | DRG 377 ==
LOC: ER 12:28 → ED HOLD 13:06 → 6 SOUTH 15:17
PROVIDERS: ADMIT Internal Medicine; ATTEND Internal Medicine
PROC: 30233N1 Transfusion of Nonautologous Red Blood Cells into Peripheral Vein, Percutaneous Approach (ICD-10-PCS; 2016-08-05)
PROC: 0DJ08ZZ Inspection of Upper Intestinal Tract, Via Natural or Artificial Opening Endoscopic (ICD-10-PCS; principal; 2016-08-06 15:30)
PROC: 3E0U3GC Introduction of Other Therapeutic Substance into Joints, Percutaneous Approach (ICD-10-PCS; 2016-08-08)
DX: K92.2 Gastrointestinal hemorrhage, unspecified (principal); N17.0 Acute kidney failure with tubular necrosis; D62 Acute posthemorrhagic anemia; D50.9 Iron deficiency anemia, unspecified; D63.1 Anemia in chronic kidney disease; E78.00 Pure hypercholesterolemia, unspecified; E78.5 Hyperlipidemia, unspecified; G43.909 Migraine, unspecified, not intractable, without status migrainosus; I12.9 Hypertensive chronic kidney disease with stage 1 through stage 4 chronic kidney disease, or unspecified chronic kidney disease; G62.9 Polyneuropathy, unspecified; K27.9 Peptic ulcer, site unspecified, unspecified as acute or chronic, without hemorrhage or perforation; M19.90 Unspecified osteoarthritis, unspecified site; M41.9 Scoliosis, unspecified; N18.2 Chronic kidney disease, stage 2 (mild); Z79.82 Long term (current) use of aspirin; K29.60 Other gastritis without bleeding
CPT/HCPCS: 36415; 71020; 73560; 73565; 80048; 81001; 82607; 82728; 82746; 83540; 83550; 83605; 83690; 84484; 85007; 85027; 85610; 85730; 86850; 86900; 86901; 86920; 87086; 93005; C9113; J1040; J2704; J3490; J7030; J7040; P9016; 99285-25

== ENCOUNTER → 2016-09-16 | Outpatient (CLI) | payer MEDICARE, BC ==
[~2016-09-16] MED LIST changes: +FERR-26 PO; +PANT40TA5 PO
== END | disposition home or self-care (01) ==
LOC: LAB 09:32
PROVIDERS: ATTEND Family Medicine
DX: D64.9 Anemia, unspecified (principal); K92.2 Gastrointestinal hemorrhage, unspecified
CPT/HCPCS: 36415; 85018

== ENCOUNTER → 2017-01-03 | Outpatient (CLI) | payer MEDICARE, BC ==
[~2017-01-03] MED LIST changes: -CHOL20003 PO; +CHOL20009 PO
[2017-01-03 10:10] LABS: BASO # 0.1 x10^3/uL (0.0-0.2); BASO % 1 % (0-3); EOS % 2 % (0-3); HEMATOCRIT 23.7 % (36.0-47.0); HEMOGLOBIN 7.6 g/dL (12.0-15.5); LYMPH # 0.8 x10^3/uL (1.0-4.8); LYMPH % 15 % (24-48); MEAN CORPUSCULAR HEMOGLOBIN 30 pg (25-35); MEAN CORPUSCULAR HGB CONC 32 g/dL (31-37); MEAN CORPUSCULAR VOLUME 93 fL (79-100); MONO % 8 % (0-9); NEUT % 73 % (31-73); PLATELET COUNT 225 x10^3/uL (140-400); RED BLOOD COUNT 2.55 x10^6/uL (3.50-5.40); RED CELL DISTRIBUTION WIDTH 14.6 % (11.5-14.5); WHITE BLOOD COUNT 5.8 x10^3/uL (4.0-11.0)
[2017-01-03 10:24] LABS: ALBUMIN 3.9 g/dL (3.4-5.0); ALBUMIN/GLOBULIN RATIO 1.1 (1.0-1.7); CALCIUM 9.6 mg/dL (8.5-10.1); CREATININE 1.4 mg/dL (0.6-1.0); GFR 42.9; POTASSIUM 3.9 mmol/L (3.5-5.1); TOTAL PROTEIN 7.3 g/dL (6.4-8.2)
== END | disposition home or self-care (01) ==
LOC: LAB 09:48
PROVIDERS: ATTEND Family Medicine
DX: N18.9 Chronic kidney disease, unspecified (principal); D64.9 Anemia, unspecified
CPT/HCPCS: 36415; 80053; 85025

== ENCOUNTER → 2017-01-27 | Outpatient (CLI) | payer MEDICARE, BC ==
[2017-01-22 15:10] VITALS: BP 110/71
[~2017-01-27] MED LIST changes: +AMOX1TAB61 PO; -ASPI1TAB30 PO; +ASPI1TAB31 PO; +IRON1TAB2 PO; +OXYC5TAB95 PO; +VALS1TAB18 PO
[2017-01-27 06:18] LABS: BASO % 1 % (0-3); EOS % 7 % (0-3); HEMATOCRIT 27.8 % (36.0-47.0); LYMPH # 0.6 x10^3/uL (1.0-4.8); LYMPH % 12 % (24-48); MEAN CORPUSCULAR HEMOGLOBIN 29 pg (25-35); MEAN CORPUSCULAR HGB CONC 33 g/dL (31-37); MEAN CORPUSCULAR VOLUME 88 fL (79-100); MONO % 11 % (0-9); NEUT % 69 % (31-73); PLATELET COUNT 278 x10^3/uL (140-400); RED BLOOD COUNT 3.14 x10^6/uL (3.50-5.40); RED CELL DISTRIBUTION WIDTH 19.9 % (11.5-14.5); WHITE BLOOD COUNT 4.9 x10^3/uL (4.0-11.0)
[2017-01-27 06:36] LABS: CALCIUM 9.2 mg/dL (8.5-10.1); GFR 63.3; POTASSIUM 3.7 mmol/L (3.5-5.1)
== END | disposition home or self-care (01) ==
LOC: SPEC 06:03
PROVIDERS: ATTEND Internal Medicine
DX: Z51.89 Encounter for other specified aftercare (principal); I10 Essential (primary) hypertension; D64.9 Anemia, unspecified; E78.5 Hyperlipidemia, unspecified
CPT/HCPCS: 36415; 80048; 85025

== ENCOUNTER → 2017-01-30 | Outpatient (CLI) | payer MEDICARE, BC ==
[2017-01-22 15:10] VITALS: BP 110/71
== END | disposition home or self-care (01) ==
LOC: PMGWOUND 08:54
PROVIDERS: ATTEND Emergency Medicine Undersea and Hyperbaric Medicine
DX: T81.31XA Disruption of external operation (surgical) wound, not elsewhere classified, initial encounter (principal); I10 Essential (primary) hypertension; E78.5 Hyperlipidemia, unspecified; M17.0 Bilateral primary osteoarthritis of knee; K21.9 Gastro-esophageal reflux disease without esophagitis; G62.9 Polyneuropathy, unspecified; I12.9 Hypertensive chronic kidney disease with stage 1 through stage 4 chronic kidney disease, or unspecified chronic kidney disease; N18.3 Chronic kidney disease, stage 3 (moderate); Z90.49 Acquired absence of other specified parts of digestive tract; Z85.038 Personal history of other malignant neoplasm of large intestine; Y83.8 Other surgical procedures as the cause of abnormal reaction of the patient, or of later complication, without mention of misadventure at the time of the procedure
CPT/HCPCS: 99215

== ENCOUNTER → 2017-02-06 | Outpatient (CLI) | payer MEDICARE, BC ==
[2017-01-22 15:10] VITALS: BP 110/71
== END | disposition home or self-care (01) ==
LOC: PMGWOUND 08:44
PROVIDERS: ATTEND Emergency Medicine Undersea and Hyperbaric Medicine
DX: T81.31XD Disruption of external operation (surgical) wound, not elsewhere classified, subsequent encounter (principal); E78.00 Pure hypercholesterolemia, unspecified; E78.5 Hyperlipidemia, unspecified; I12.9 Hypertensive chronic kidney disease with stage 1 through stage 4 chronic kidney disease, or unspecified chronic kidney disease; N18.3 Chronic kidney disease, stage 3 (moderate); Z85.038 Personal history of other malignant neoplasm of large intestine; Y83.8 Other surgical procedures as the cause of abnormal reaction of the patient, or of later complication, without mention of misadventure at the time of the procedure
CPT/HCPCS: 97597

== ENCOUNTER → 2017-02-13 | Outpatient (CLI) | payer MEDICARE, BC ==
[2017-01-22 15:10] VITALS: BP 110/71
== END | disposition home or self-care (01) ==
LOC: PMGWOUND 08:48
PROVIDERS: ATTEND Emergency Medicine Undersea and Hyperbaric Medicine
DX: T81.31XD Disruption of external operation (surgical) wound, not elsewhere classified, subsequent encounter (principal); E78.5 Hyperlipidemia, unspecified; E78.00 Pure hypercholesterolemia, unspecified; I12.9 Hypertensive chronic kidney disease with stage 1 through stage 4 chronic kidney disease, or unspecified chronic kidney disease; N18.3 Chronic kidney disease, stage 3 (moderate); K21.9 Gastro-esophageal reflux disease without esophagitis; Z85.048 Personal history of other malignant neoplasm of rectum, rectosigmoid junction, and anus; Y83.8 Other surgical procedures as the cause of abnormal reaction of the patient, or of later complication, without mention of misadventure at the time of the procedure
CPT/HCPCS: 99214

== ENCOUNTER → 2017-02-27 | Outpatient (CLI) | payer MEDICARE, BC ==
[2017-01-22 15:10] VITALS: BP 110/71
== END | disposition home or self-care (01) ==
LOC: PMGWOUND 08:42
PROVIDERS: ATTEND Emergency Medicine Undersea and Hyperbaric Medicine
DX: T81.31XD Disruption of external operation (surgical) wound, not elsewhere classified, subsequent encounter (principal); K21.9 Gastro-esophageal reflux disease without esophagitis; E78.5 Hyperlipidemia, unspecified; I13.0 Hypertensive heart and chronic kidney disease with heart failure and stage 1 through stage 4 chronic kidney disease, or unspecified chronic kidney disease; N18.3 Chronic kidney disease, stage 3 (moderate); I50.9 Heart failure, unspecified; G62.9 Polyneuropathy, unspecified; M17.0 Bilateral primary osteoarthritis of knee; Z85.048 Personal history of other malignant neoplasm of rectum, rectosigmoid junction, and anus; Z85.038 Personal history of other malignant neoplasm of large intestine; Z90.49 Acquired absence of other specified parts of digestive tract; Y83.8 Other surgical procedures as the cause of abnormal reaction of the patient, or of later complication, without mention of misadventure at the time of the procedure
CPT/HCPCS: 17250

== ENCOUNTER → 2017-03-25 | Outpatient (CLI) | payer MEDICARE, BC ==
[2017-01-22 15:10] VITALS: BP 110/71
== END | disposition home or self-care (01) ==
LOC: PMGWOUND 10:49
PROVIDERS: ATTEND Emergency Medicine Undersea and Hyperbaric Medicine
DX: T81.31XD Disruption of external operation (surgical) wound, not elsewhere classified, subsequent encounter (principal); M17.0 Bilateral primary osteoarthritis of knee; K21.9 Gastro-esophageal reflux disease without esophagitis; E11.22 Type 2 diabetes mellitus with diabetic chronic kidney disease; I13.0 Hypertensive heart and chronic kidney disease with heart failure and stage 1 through stage 4 chronic kidney disease, or unspecified chronic kidney disease; N18.2 Chronic kidney disease, stage 2 (mild); I50.9 Heart failure, unspecified; G62.9 Polyneuropathy, unspecified; E78.5 Hyperlipidemia, unspecified; Z94.0 Kidney transplant status; Z79.4 Long term (current) use of insulin; Z85.038 Personal history of other malignant neoplasm of large intestine; Z85.048 Personal history of other malignant neoplasm of rectum, rectosigmoid junction, and anus; Y83.8 Other surgical procedures as the cause of abnormal reaction of the patient, or of later complication, without mention of misadventure at the time of the procedure
CPT/HCPCS: 17250

== ENCOUNTER → 2017-04-08 | Outpatient (CLI) | payer MEDICARE, BC ==
[2017-01-22 15:10] VITALS: BP 110/71
== END | disposition home or self-care (01) ==
LOC: PMGWOUND 10:59
PROVIDERS: ATTEND Emergency Medicine Undersea and Hyperbaric Medicine
DX: T81.31XD Disruption of external operation (surgical) wound, not elsewhere classified, subsequent encounter (principal); M17.0 Bilateral primary osteoarthritis of knee; K21.9 Gastro-esophageal reflux disease without esophagitis; E78.00 Pure hypercholesterolemia, unspecified; E11.22 Type 2 diabetes mellitus with diabetic chronic kidney disease; I13.0 Hypertensive heart and chronic kidney disease with heart failure and stage 1 through stage 4 chronic kidney disease, or unspecified chronic kidney disease; N18.3 Chronic kidney disease, stage 3 (moderate); I50.9 Heart failure, unspecified; G43.909 Migraine, unspecified, not intractable, without status migrainosus; G62.9 Polyneuropathy, unspecified; E11.51 Type 2 diabetes mellitus with diabetic peripheral angiopathy without gangrene; Z85.038 Personal history of other malignant neoplasm of large intestine; Z85.048 Personal history of other malignant neoplasm of rectum, rectosigmoid junction, and anus; Z94.0 Kidney transplant status; Z79.4 Long term (current) use of insulin; Z90.49 Acquired absence of other specified parts of digestive tract; Y83.8 Other surgical procedures as the cause of abnormal reaction of the patient, or of later complication, without mention of misadventure at the time of the procedure
CPT/HCPCS: 99212

== ENCOUNTER 2017-09-08 10:23 | Emergency (ER) | payer MEDICARE, BC | END 2017-09-08 11:33 | disposition home or self-care (01) | LOC: ER 10:23 | DX: L03.119 Cellulitis of unspecified part of limb (principal); K21.9 Gastro-esophageal reflux disease without esophagitis; I10 Essential (primary) hypertension; G43.909 Migraine, unspecified, not intractable, without status migrainosus; E78.00 Pure hypercholesterolemia, unspecified; Z91.041 Radiographic dye allergy status | CPT/HCPCS: 99283 ==

== ENCOUNTER 2017-10-16 12:01 | Emergency (ER) | payer MEDICARE, BC ==
[2017-10-16] MEDS: ONDANSETRON PF 4 MG/2 ML VIAL. IV (13:48)
[2017-10-16] MEDS: fentaNYL PF VIAL 100 MCG/2 ML VIAL IV (13:48)
[2017-10-16] MEDS: fentaNYL PF VIAL 100 MCG/2 ML VIAL IM (13:50)
[2017-10-16] MEDS: IV NORMAL SALINE 1000ML BAG 1,000 ML IV ×3 (13:50→16:15)
[2017-10-16 14:10] LABS: BASO # 0.1 x10^3/uL (0.0-0.2); BASO % 1 % (0-3); EOS # 0.2 x10^3/uL (0.0-0.7); EOS % 2 % (0-3); HEMATOCRIT 29.6 % (36.0-47.0); HEMOGLOBIN 10.1 g/dL (12.0-15.5); LYMPH # 0.4 x10^3/uL (1.0-4.8); LYMPH % 5 % (24-48); MEAN CORPUSCULAR HEMOGLOBIN 34 pg (25-35); MEAN CORPUSCULAR HGB CONC 34 g/dL (31-37); MEAN CORPUSCULAR VOLUME 98 fL (79-100); MONO # 0.4 x10^3/uL (0.0-1.1); MONO % 5 % (0-9); NEUT # 7.5 x10^3uL (1.8-7.7); NEUT % 88 % (31-73); PLATELET COUNT 164 x10^3/uL (140-400); RED BLOOD COUNT 3.01 x10^6/uL (3.50-5.40); RED CELL DISTRIBUTION WIDTH 12.9 % (11.5-14.5); WHITE BLOOD COUNT 8.5 x10^3/uL (4.0-11.0)
[2017-10-16 14:20] LABS: ADD MAN DIFF? YES; ANION GAP 10 (6-14); BLOOD UREA NITROGEN 21 mg/dL (7-20); CALCIUM 9.3 mg/dL (8.5-10.1); CARBON DIOXIDE 26 mmol/L (21-32); CHLORIDE 105 mmol/L (98-107); CREATININE 1.2 mg/dL (0.6-1.0); GFR 51.3; GLUCOSE 127 mg/dL (70-99); POTASSIUM 3.8 mmol/L (3.5-5.1); SODIUM 141 mmol/L (136-145)
[2017-10-16 14:23] LABS: ETHANOL < 10 mg/dL (0-10)
[2017-10-16 14:32] LABS: TROPONINI < 0.017 ng/mL (0.000-0.055)
[2017-10-16 14:39] LABS: CKMB INDEX 1.1 % (0-4); CKMB MASS 2.2 ng/mL (0.0-3.6); CREATINE KINASE 203 U/L (26-192)
[2017-10-16 16:09] LABS: % BANDS 6 % (0-9); % BASOS 1 % (0-3); % EOS 2 % (0-5); % LYMPHS 7 % (24-48); % MONOS 1 % (0-10); % SEGS 83 % (35-66); PLT ESTIMATE ADEQUATE (ADEQUATE)
== END 2017-10-16 18:50 | disposition short-term general hospital (02) ==
LOC: ER 18:50
DX: S72.445 Nondisplaced fracture of lower epiphysis (separation) of left femur (principal); S12.001A Unspecified nondisplaced fracture of first cervical vertebra, initial encounter for closed fracture; E78.00 Pure hypercholesterolemia, unspecified; K21.9 Gastro-esophageal reflux disease without esophagitis; I10 Essential (primary) hypertension; G43.909 Migraine, unspecified, not intractable, without status migrainosus; Z90.49 Acquired absence of other specified parts of digestive tract; Z91.041 Radiographic dye allergy status; V49.88XA Car occupant (driver) (passenger) injured in other specified transport accidents, initial encounter; Y93.89 Activity, other specified; Y99.8 Other external cause status; Y92.488 Other paved roadways as the place of occurrence of the external cause
CPT/HCPCS: 36415; 70450; 71045; 71250; 72125; 73090; 73130; 73552; 73562; 73700; 74176; 80048; 82553; 84484; 85007; 85025; 86850; 86900; 86901; 93005; 96374; 96375; 99285-25; G0480; J2405; J3010; J7030

== ENCOUNTER 2018-01-16 00:04 | Inpatient (IN) | payer MEDICARE ==
[~2018-01-16] VITALS: Ht 165.1 cm; Wt 39.5 kg
[~2018-01-16 00:04] MED LIST changes: +DOXY100T PO; -FERR-26 PO; +FERR325T14 PO; +MUPI15CR TP
[2018-01-16] MEDS ORDERED: fentaNYL PF VIAL 100 MCG/2 ML VIAL IV ONE (01:30)
[2018-01-16 01:33] LABS: BASO # 0.1 x10^3/uL (0.0-0.2); BASO % 1 % (0-3); EOS # 0.2 x10^3/uL (0.0-0.7); EOS % 3 % (0-3); HEMATOCRIT 30.6 % (36.0-47.0); HEMOGLOBIN 10.4 g/dL (12.0-15.5); LYMPH # 0.5 x10^3/uL (1.0-4.8); LYMPH % 9 % (24-48); MEAN CORPUSCULAR HEMOGLOBIN 33 pg (25-35); MEAN CORPUSCULAR HGB CONC 34 g/dL (31-37); MEAN CORPUSCULAR VOLUME 96 fL (79-100); MONO # 0.4 x10^3/uL (0.0-1.1); MONO % 8 % (0-9); NEUT # 4.2 x10^3uL (1.8-7.7); NEUT % 78 % (31-73); PLATELET COUNT 146 x10^3/uL (140-400); RED BLOOD COUNT 3.18 x10^6/uL (3.50-5.40); RED CELL DISTRIBUTION WIDTH 13.7 % (11.5-14.5); WHITE BLOOD COUNT 5.4 x10^3/uL (4.0-11.0)
[2018-01-16 01:40] LABS: CALCIUM 9.6 mg/dL (8.5-10.1); CREATININE 1.3 mg/dL (0.6-1.0); GFR 46.7; POTASSIUM 3.7 mmol/L (3.5-5.1)
[2018-01-16 01:46] LABS: ALBUMIN 3.6 g/dL (3.4-5.0); TOTAL BILIRUBIN 0.8 mg/dL (0.2-1.0); TOTAL PROTEIN 7.2 g/dL (6.4-8.2)
[2018-01-16] MEDS: IV NORMAL SALINE 1000ML BAG 1,000 ML IV SCH ×2 (01:58→12:29)
--- NOTE | 2018-01-16 02:01 | RAD ---
INDICATION: RT.KNEE FX COMPARISON: Plain film from earlier same day TECHNIQUE: Axial CT images obtained through the right knee. One or more of the following individualized dose reduction techniques were utilized for this examination: 1. Automated exposure control; 2. Adjustment of the mA and/or kV according to patient size; 3. Use of iterative reconstruction technique. FINDINGS: Degenerative changes of the right knee with joint space narrowing as well as osteophyte formation and chondrocalcinosis. Diffuse osseous demineralization. Acute appearing comminuted fracture of the proximal fibula with displacement. There is also a mildly comminuted fracture of the proximal tibia with mild displacement. This extends through the metaphysis and proximal diaphysis into the metaphysis. There is intra-articular extension at the medial tibial plateau. Large lipohemarthrosis. There is high density fluid within the soft tissues adjacent to the fracture site which could be secondary to associated blood. Severe calcific atherosclerosis. IMPRESSION: 1. Comminuted fracture of the proximal tibia and fibula with intra-articular extension at the tibia. There is associated lipohemarthrosis and blood within the adjacent soft tissues. 2. Osseous demineralization. Electronically signed by: Rebel Louie MD (01/16/2018 1:57 AM) [id number]
[2018-01-16 02:10] VITALS: BP 116/66
[2018-01-16] MEDS ORDERED: ONDANSETRON PF 4 MG/2 ML VIAL. IV PRN (02:15)
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
[2018-01-16 07:00] VITALS: BP 95/48
--- NOTE | 2018-01-16 09:02 | RAD ---
Chest radiograph 01/16/2018 12:56 AM INDICATION: Pain after fall, trauma COMPARISON: October 16, 2017 TECHNIQUE: Portable upright frontal view of the chest is provided. FINDINGS: The cardiomediastinal silhouette is within normal limits. There are no pleural effusions. There is no pulmonary vascular congestion. There is no pneumothorax. Linear densities in the left midlung may represent subsegmental atelectasis versus scarring given stability since October 16, 2017. Pulmonary emphysematous changes are noted. There may be increase in interstitial changes in the right upper lobe which may represent subsegmental atelectasis versus pulmonary infiltrate. No traumatic osseous abnormality is suspected. IMPRESSION: Chronic interstitial changes are noted with underlying COPD. There may be increase interstitial changes in the right upper lobe which may represent subsegmental atelectasis versus developing infiltrate or contusive changes. Correlate with degree of trauma. Electronically signed by: Sherry Novak MD (01/16/2018 8:58 AM) [email or web address]
--- NOTE | 2018-01-16 09:03 | RAD ---
Right knee radiograph 01/16/2018 INDICATION: Knee pain after fall. COMPARISON: Left knee radiograph October 16, 2017 TECHNIQUE: 3 views of the left knee are provided. FINDINGS: Transversely oriented fractures of the proximal tibial diaphysis and fibular metadiaphysis are noted with mild displacement and no significant angulation. There is a moderate knee joint effusion without lipohemarthrosis. Definite intra-articular extension is not visualized. Vascular opacifications are present. Extensive soft tissue edema is noted. IMPRESSION: Transversely oriented and mildly displaced fractures involving the proximal tibial diaphysis and fibular metadiaphysis. Electronically signed by: Sherry Novak MD (01/16/2018 9:00 AM) [id number]
--- NOTE | 2018-01-16 09:11 | RAD ---
Left femur radiograph 01/16/2018 1:30 AM INDICATION: Post fall, check hardware COMPARISON: Left femur radiograph October 16, 2017 TECHNIQUE: 3 views of the left femur are provided. FINDINGS: Postoperative changes are identified from open reduction and internal fixation of a distal femoral fracture. Lateral plate and screws are visualized. There is interval osseous healing of previously seen fracture. There is a residual fracture line, however extensive new bone formation is noted. Vascular calcifications are present. No knee joint effusion is identified. There is no suggestion of a fracture involving the hardware. IMPRESSION: Postoperative changes from open reduction and internal fixation of a distal femoral fracture without new fracture. Electronically signed by: Sherry Novak MD (01/16/2018 9:08 AM) [id number]
--- NOTE | 2018-01-16 09:13 | RAD ---
Pelvis and right hip radiograph 01/16/2018 12:56 AM INDICATION: Fall COMPARISON: None available. TECHNIQUE: AP view the pelvis and 2 dedicated views the right hip are provided. FINDINGS: There is no acute fracture or dislocation. Bone mineralization is within normal limits. Moderate bilateral femoral acetabular joint space narrowing with minimal subcortical sclerosis. Regional Soft tissues are within normal limits. There is no soft tissue gas or osseous erosion. IMPRESSION: No acute fracture or dislocation. 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 Electronically signed by: Sherry Novak MD (01/16/2018 9:10 AM) [id number]
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
[2018-01-16 11:00] VITALS: BP 90/52
[2018-01-16] MEDS: fentaNYL PF VIAL 100 MCG/2 ML VIAL IV PRN (12:30)
[2018-01-16] MEDS ORDERED: HYDR25TA9 PO (13:07)
[2018-01-16] MEDS ORDERED: LOSA50TA7 PO (13:07)
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
[2018-01-16 15:00] VITALS: BP 103/55
[2018-01-16] MEDS ORDERED: ACETAMINOPHEN 500 MG TABLET PO PRN (17:30)
[2018-01-16] MEDS ORDERED: oxyCODONE IR 5 MG TABLET PO PRN (17:30)
[2018-01-16] MEDS: FERROUS SULFATE 325 MG TABLET. PO SCH (18:00)
[2018-01-16] MEDS ORDERED: hydroCHLOROthiazide 25 MG TABLET PO SCH (18:00)
[2018-01-16] MEDS ORDERED: LOSARTAN POTASSIUM 50 MG TABLET. PO SCH (18:00)
[2018-01-16] MEDS: PANTOPRAZOLE 40 MG TABLET.DR. PO SCH (18:37)
[2018-01-16 19:00] VITALS: BP 88/55
[2018-01-16] MEDS: HYDROcodone/APAP 5/325MG 1 TAB TABLET PO PRN (21:23)
[2018-01-16] MEDS: ATORVASTATIN CALCIUM 10 MG TABLET. PO SCH (21:23)
[2018-01-16 23:00] VITALS: BP 93/48
[2018-01-17 03:00] VITALS: BP 103/52
[2018-01-17 07:00] VITALS: BP 128/56
[2018-01-17] MEDS: FERROUS SULFATE 325 MG TABLET. PO SCH (08:00)
[2018-01-17] MEDS ORDERED: B12 PO SCH (09:00)
[2018-01-17] MEDS ORDERED: GLUC PO SCH (09:00)
[2018-01-17] MEDS ORDERED: IRON CARB PO SCH (09:00)
[2018-01-17] MEDS ORDERED: [UNRECOGNIZED DRUG - OTHER] PO SCH (09:00)
[2018-01-17] MEDS ORDERED: DSS PO SCH (09:00)
[2018-01-17] MEDS: CHOLECALCIFEROL (VITAMIN D3) 1,000 UNIT TABLET PO SCH (09:26)
[2018-01-17] MEDS: PANTOPRAZOLE 40 MG TABLET.DR. PO SCH (09:26)
[2018-01-17] MEDS: HYDROcodone/APAP 5/325MG 1 TAB TABLET PO PRN ×2 (10:38→21:04)
[2018-01-17 11:44] VITALS: BP 103/51
--- NOTE | 2018-01-17 13:19 | PDOC ---
PROGRESS NOTES Chief Complaint Chief Complaint R tibial plateau fx HTN HLD Previous L femur fracture Colon resection History of Present Illness History of Present Illness Pt seen and examined Dw RN Pt reports controlled pain in R leg Vitals Vitals Vital Signs Date Time Temp Pulse Resp B/P (MAP) Pulse Ox O2 Delivery O2 Flow Rate FiO2 01/17/18 11:44 98.2 85 103/51 (68) 98 Room Air 98.2 01/17/18 11:40 17 Physical Exam General: Alert, Cooperative Heart: Regular rate, No murmurs Lungs: Clear Abdomen: Normal bowel sounds, Soft Extremities: Normal pulses, Other (R LE in splint) Skin: No rashes, No breakdown Review of Systems Review of Systems CO pain CO weakness Assessment and Plan Assessmemt and Plan Problems Medical Problems: (1) Fracture, tibial plateau Status: Acute R tibial plateau fx HTN HLD Previous L femur fracture Colon resection Plan: Wound care PT/OT PRN narcotics Labs Home meds Appreciate ortho input Comment Review of Relevant I have reviewed the following items ladonna (where applicable) has been applied. Labs Laboratory Tests Test 01/16/18 01:10 White Blood Count 5.4 x10^3/uL (4.0-11.0) Red Blood Count 3.18 x10^6/uL (3.50-5.40) Hemoglobin 10.4 g/dL (12.0-15.5) Hematocrit 30.6 % (36.0-47.0) Mean Corpuscular Volume 96 fL (79-100) Mean Corpuscular Hemoglobin 33 pg (25-35) Mean Corpuscular Hemoglobin Concent 34 g/dL (31-37) Red Cell Distribution Width 13.7 % (11.5-14.5) Platelet Count 146 x10^3/uL (140-400) Neutrophils (%) (Auto) 78 % (31-73) Lymphocytes (%) (Auto) 9 % (24-48) Monocytes (%) (Auto) 8 % (0-9) Eosinophils (%) (Auto) 3 % (0-3) Basophils (%) (Auto) 1 % (0-3) Neutrophils # (Auto) 4.2 x10^3uL (1.8-7.7) Lymphocytes # (Auto) 0.5 x10^3/uL (1.0-4.8) Monocytes # (Auto) 0.4 x10^3/uL (0.0-1.1) Eosinophils # (Auto) 0.2 x10^3/uL (0.0-0.7) Basophils # (Auto) 0.1 x10^3/uL (0.0-0.2) Prothrombin Time 14.0 SEC (11.7-14.0) Prothromb Time International Ratio 1.1 (0.8-1.1) Sodium Level 143 mmol/L (136-145) Potassium Level 3.7 mmol/L (3.5-5.1) Chloride Level 105 mmol/L (98-107) Carbon Dioxide Level 25 mmol/L (21-32) Anion Gap 13 (6-14) Blood Urea Nitrogen 23 mg/dL (7-20) Creatinine 1.3 mg/dL (0.6-1.0) Estimated GFR (Cockcroft-Gault) 46.7 BUN/Creatinine Ratio 18 (6-20) Glucose Level 125 mg/dL (70-99) Calcium Level 9.6 mg/dL (8.5-10.1) Total Bilirubin 0.8 mg/dL (0.2-1.0) Aspartate Amino Transf (AST/SGOT) 16 U/L (15-37) Alanine Aminotransferase (ALT/SGPT) 15 U/L (14-59) Alkaline Phosphatase 86 U/L (46-116) Total Protein 7.2 g/dL (6.4-8.2) Albumin 3.6 g/dL (3.4-5.0) Albumin/Globulin Ratio 1.0 (1.0-1.7) Medications Current Medications Sodium Chloride 1,000 ml @ 75 mls/hr [id number] IV Last administered on at 12:29; Start 01/16/18 at 00:58; Stop 01/17/18 at 00:57; Status DC Fentanyl Citrate (Fentanyl 2ml Vial) 25 mcg 1X ONCE IV Last administered on at 01:57; Start 01/16/18 at 01:30; Stop 01/16/18 at 01:31; Status DC Fentanyl Citrate (Fentanyl 2ml Vial) 50 mcg PRN Q2HR PRN IV SEVERE PAIN Last administered on 01/16/18at 12:30; Start 01/16/18 at 02:15 Ondansetron HCl (Zofran) 4 mg PRN Q6HRS PRN IV NAUSEA/VOMITING 1ST CHOICE; Start 01/16/18 at 02:15 Acetaminophen (Tylenol) 500 mg PRN Q6HRS PRN PO MILD PAIN / TEMP; Start at 17:30 Acetaminophen/ Hydrocodone Bitart (Lortab 5/325) 1 tab PRN Q4HRS PRN PO MODERATE TO SEVERE PAIN Last administered on 01/17/18at 10:38; Start 01/16/18 at 17:30 Atorvastatin Calcium (Lipitor) 10 mg HS PO Last administered on 01/16/18at 21:23 ; Start 01/16/18 at 21:00 Ferrous Sulfate (Feosol) 325 mg BIDWMEALS PO ; Start 01/16/18 at 18:00 Hydrochlorothiazide (Hydrodiuril) 25 mg DAILY PO ; Start 01/16/18 at 18:00; Stop 01/16/18 at 18:00; Status DC Losartan Potassium (Cozaar) 50 mg DAILY PO ; Start 01/16/18 at 18:00; Stop 01/16 at 18:00; Status DC Pantoprazole Sodium (Protonix) 40 mg DAILYAC PO Last administered on 01/17/18at 09:26; Start 01/16/18 at 18:00 Non-Formulary Medication (Iron, Carb & Gluc/Fa/B12/C/Dss (Ferralet 90 Dual-Iron Tablet)) 1 tab DAILY PO ; Start 01/17/18 at 09:00; Status UNV Oxycodone HCl (Roxicodone) 5 mg PRN Q4HRS PRN PO BREAKTHROUGH PAIN; Start 01/16 at 17:30 Vitamin D (Vitamin D3) 2,000 unit DAILY PO Last administered on 01/17/18at 09:26 ; Start 01/17/18 at 09:00 Active Scripts Active Oxycodone Hcl 5 Mg Tablet 5 Mg PO PRN Q4HRS PRN Ferrous Sulfate 325 Mg Tablet 325 Mg PO BIDWMEALS Pantoprazole Sodium 40 Mg Tablet.dr 40 Mg PO DAILYAC Reported Hydrochlorothiazide Tablet (Hydrochlorothiazide) 25 Mg Tablet 25 Mg PO DAILY Losartan Potassium 50 Mg Tablet 50 Mg PO DAILY Ferralet 90 Dual-Iron Tablet (Iron, Carb & Gluc/Fa/B12/C/Dss) 1 Each Tablet 1 Tab PO DAILY Vitamin D3 (Cholecalciferol (Vitamin D3)) 2,000 Unit Capsule 2,000 Unit PO Atorvastatin Calcium 10 Mg Tablet 10 Mg PO HS Vitals/I & O Vital Sign - Last 24 Hours 01/16/18 01/16/18 01/16/18 01/16/18 15:00 19:00 20:00 21:23 Temp 98.4 98.4 98.4 98.4 Pulse 88 93 Resp 18 18 B/P (MAP) 103/55 (71) 88/55 (66) Pulse Ox 99 98 O2 Delivery Room Air Room Air Room Air Room Air 01/16/18 01/17/18 01/17/18 01/17/18 23:00 03:00 07:00 10:38 Temp 99.4 98.8 98.4 99.4 98.8 98.4 Pulse 92 83 79 Resp 18 18 17 B/P (MAP) 93/48 (63) 103/52 (69) 128/56 (80) Pulse Ox 97 98 98 98 O2 Delivery Room Air Room Air Room Air Room Air 01/17/18 01/17/18 11:40 11:44 Temp 98.2 98.2 Pulse 85 Resp 17 B/P (MAP) 103/51 (68) Pulse Ox 98 98 O2 Delivery Room Air Room Air DAVID HUANG III DO Jan 17, 2018 13:18
--- NOTE | 2018-01-17 13:29 | PDOC ---
PROGRESS NOTES Subjective Subjective Pain controlled. Pt states she is more comfortable now with the knee brace in place, but has pain with getting up. Objective Vital Signs Vital Signs Date Time Temp Pulse Resp B/P (MAP) Pulse Ox O2 Delivery O2 Flow Rate FiO2 01/17/18 11:44 98.2 85 103/51 (68) 98 Room Air 98.2 01/17/18 11:40 17 Physical Exam Lying in bed with hinged knee brace on right knee locked at 30 of flexion. Medigrip under brace. Swelling mildly improved. Calf soft and nontender with negative Adri's. Good df/pf at foot. Peripheral pulses and light touch sensation intact. Labs Laboratory Tests Test 01/16/18 01:10 White Blood Count 5.4 x10^3/uL (4.0-11.0) Red Blood Count 3.18 x10^6/uL (3.50-5.40) Hemoglobin 10.4 g/dL (12.0-15.5) Hematocrit 30.6 % (36.0-47.0) Mean Corpuscular Volume 96 fL (79-100) Mean Corpuscular Hemoglobin 33 pg (25-35) Mean Corpuscular Hemoglobin Concent 34 g/dL (31-37) Red Cell Distribution Width 13.7 % (11.5-14.5) Platelet Count 146 x10^3/uL (140-400) Neutrophils (%) (Auto) 78 % (31-73) Lymphocytes (%) (Auto) 9 % (24-48) Monocytes (%) (Auto) 8 % (0-9) Eosinophils (%) (Auto) 3 % (0-3) Basophils (%) (Auto) 1 % (0-3) Neutrophils # (Auto) 4.2 x10^3uL (1.8-7.7) Lymphocytes # (Auto) 0.5 x10^3/uL (1.0-4.8) Monocytes # (Auto) 0.4 x10^3/uL (0.0-1.1) Eosinophils # (Auto) 0.2 x10^3/uL (0.0-0.7) Basophils # (Auto) 0.1 x10^3/uL (0.0-0.2) Prothrombin Time 14.0 SEC (11.7-14.0) Prothromb Time International Ratio 1.1 (0.8-1.1) Sodium Level 143 mmol/L (136-145) Potassium Level 3.7 mmol/L (3.5-5.1) Chloride Level 105 mmol/L (98-107) Carbon Dioxide Level 25 mmol/L (21-32) Anion Gap 13 (6-14) Blood Urea Nitrogen 23 mg/dL (7-20) Creatinine 1.3 mg/dL (0.6-1.0) Estimated GFR (Cockcroft-Gault) 46.7 BUN/Creatinine Ratio 18 (6-20) Glucose Level 125 mg/dL (70-99) Calcium Level 9.6 mg/dL (8.5-10.1) Total Bilirubin 0.8 mg/dL (0.2-1.0) Aspartate Amino Transf (AST/SGOT) 16 U/L (15-37) Alanine Aminotransferase (ALT/SGPT) 15 U/L (14-59) Alkaline Phosphatase 86 U/L (46-116) Total Protein 7.2 g/dL (6.4-8.2) Albumin 3.6 g/dL (3.4-5.0) Albumin/Globulin Ratio 1.0 (1.0-1.7) Assessment Assessment Right proximal tibia/fibula fracture Plan Plan of Care Continue hinged knee brace locked in 30 degrees of flexion. She will get up with therapy today to practice walking with walker. NWB on RLE with walker. Continue ice for swelling. We will continue monitoring her soft tissues. Continue with nonoperative treatment in the brace for now. If she is discharged home, we will plan for office followup on Friday. Otherwise, we will continue to followup during her hospital stay. ESTUARDO LIGHT Jan 17, 2018 13:29
[2018-01-17 15:34] VITALS: BP 113/58
[2018-01-17] MEDS: fentaNYL PF VIAL 100 MCG/2 ML VIAL IV PRN (16:08)
[2018-01-17 19:15] VITALS: BP 116/68
[2018-01-17] MEDS: ATORVASTATIN CALCIUM 10 MG TABLET. PO SCH (21:04)
[2018-01-17 23:10] VITALS: BP 129/40
[2018-01-18 03:06] VITALS: BP 110/61
[2018-01-18 07:00] VITALS: BP 142/82
[2018-01-18] MEDS: HYDROcodone/APAP 5/325MG 1 TAB TABLET PO PRN ×2 (09:14→21:05)
[2018-01-18] MEDS: PANTOPRAZOLE 40 MG TABLET.DR. PO SCH (09:14)
[2018-01-18] MEDS: CHOLECALCIFEROL (VITAMIN D3) 1,000 UNIT TABLET PO SCH (09:14)
[2018-01-18 10:10] LABS: BASO % 1 % (0-3); EOS # 0.3 x10^3/uL (0.0-0.7); EOS % 3 % (0-3); HEMATOCRIT 27.7 % (36.0-47.0); HEMOGLOBIN 9.4 g/dL (12.0-15.5); LYMPH # 0.5 x10^3/uL (1.0-4.8); LYMPH % 6 % (24-48); MEAN CORPUSCULAR HEMOGLOBIN 33 pg (25-35); MEAN CORPUSCULAR HGB CONC 34 g/dL (31-37); MEAN CORPUSCULAR VOLUME 96 fL (79-100); MONO # 0.6 x10^3/uL (0.0-1.1); MONO % 8 % (0-9); NEUT # 6.8 x10^3uL (1.8-7.7); NEUT % 83 % (31-73); PLATELET COUNT 133 x10^3/uL (140-400); RED BLOOD COUNT 2.88 x10^6/uL (3.50-5.40); RED CELL DISTRIBUTION WIDTH 13.5 % (11.5-14.5); WHITE BLOOD COUNT 8.1 x10^3/uL (4.0-11.0)
[2018-01-18] MEDS: fentaNYL PF VIAL 100 MCG/2 ML VIAL IV PRN ×2 (10:14→13:54)
[2018-01-18 10:20] LABS: CALCIUM 9.2 mg/dL (8.5-10.1); CREATININE 0.8 mg/dL (0.6-1.0); GFR 81.7; POTASSIUM 3.9 mmol/L (3.5-5.1)
[2018-01-18 11:00] VITALS: BP 110/60
--- NOTE | 2018-01-18 11:46 | PDOC ---
PROGRESS NOTES Subjective Subjective Pt states her pain is more controlled today and better in the brace. She does have pain when transferring though. Objective Vital Signs Vital Signs Date Time Temp Pulse Resp B/P (MAP) Pulse Ox O2 Delivery O2 Flow Rate FiO2 01/18/18 10:45 18 98 Room Air 01/18/18 07:00 97.9 85 142/82 (102) 97.9 Physical Exam Sitting up in recliner. Hinged knee brace locked at 30 intact with Medigrip over skin. Ice pack on knee. Calf soft and nontender with negative Adri's. Good df/pf. NVI. Labs Laboratory Tests Test 01/18/18 09:30 01/18/18 09:50 Sodium Level 140 mmol/L (136-145) Potassium Level 3.9 mmol/L (3.5-5.1) Chloride Level 104 mmol/L (98-107) Carbon Dioxide Level 30 mmol/L (21-32) Anion Gap 6 (6-14) Blood Urea Nitrogen 18 mg/dL (7-20) Creatinine 0.8 mg/dL (0.6-1.0) Estimated GFR (Cockcroft-Gault) 81.7 Glucose Level 170 mg/dL (70-99) Calcium Level 9.2 mg/dL (8.5-10.1) White Blood Count 8.1 x10^3/uL (4.0-11.0) Red Blood Count 2.88 x10^6/uL (3.50-5.40) Hemoglobin 9.4 g/dL (12.0-15.5) Hematocrit 27.7 % (36.0-47.0) Mean Corpuscular Volume 96 fL (79-100) Mean Corpuscular Hemoglobin 33 pg (25-35) Mean Corpuscular Hemoglobin Concent 34 g/dL (31-37) Red Cell Distribution Width 13.5 % (11.5-14.5) Platelet Count 133 x10^3/uL (140-400) Neutrophils (%) (Auto) 83 % (31-73) Lymphocytes (%) (Auto) 6 % (24-48) Monocytes (%) (Auto) 8 % (0-9) Eosinophils (%) (Auto) 3 % (0-3) Basophils (%) (Auto) 1 % (0-3) Neutrophils # (Auto) 6.8 x10^3uL (1.8-7.7) Lymphocytes # (Auto) 0.5 x10^3/uL (1.0-4.8) Monocytes # (Auto) 0.6 x10^3/uL (0.0-1.1) Eosinophils # (Auto) 0.3 x10^3/uL (0.0-0.7) Basophils # (Auto) 0.0 x10^3/uL (0.0-0.2) Laboratory Tests Test 01/18/18 09:30 01/18/18 09:50 Sodium Level 140 mmol/L (136-145) Potassium Level 3.9 mmol/L (3.5-5.1) Chloride Level 104 mmol/L (98-107) Carbon Dioxide Level 30 mmol/L (21-32) Anion Gap 6 (6-14) Blood Urea Nitrogen 18 mg/dL (7-20) Creatinine 0.8 mg/dL (0.6-1.0) Estimated GFR (Cockcroft-Gault) 81.7 Glucose Level 170 mg/dL (70-99) Calcium Level 9.2 mg/dL (8.5-10.1) White Blood Count 8.1 x10^3/uL (4.0-11.0) Red Blood Count 2.88 x10^6/uL (3.50-5.40) Hemoglobin 9.4 g/dL (12.0-15.5) Hematocrit 27.7 % (36.0-47.0) Mean Corpuscular Volume 96 fL (79-100) Mean Corpuscular Hemoglobin 33 pg (25-35) Mean Corpuscular Hemoglobin Concent 34 g/dL (31-37) Red Cell Distribution Width 13.5 % (11.5-14.5) Platelet Count 133 x10^3/uL (140-400) Neutrophils (%) (Auto) 83 % (31-73) Lymphocytes (%) (Auto) 6 % (24-48) Monocytes (%) (Auto) 8 % (0-9) Eosinophils (%) (Auto) 3 % (0-3) Basophils (%) (Auto) 1 % (0-3) Neutrophils # (Auto) 6.8 x10^3uL (1.8-7.7) Lymphocytes # (Auto) 0.5 x10^3/uL (1.0-4.8) Monocytes # (Auto) 0.6 x10^3/uL (0.0-1.1) Eosinophils # (Auto) 0.3 x10^3/uL (0.0-0.7) Basophils # (Auto) 0.0 x10^3/uL (0.0-0.2) Assessment Assessment Right proximal tibia/fibula fracture Plan Plan of Care Continue with nonoperative treatment in the hinged knee brace locked at 30 of flexion. NWB on the RLE. We will plan to see her on 01/22/18 outpatient in our office for x-rays and soft tissue assessment. If fracture remains minimally displaced, we will continue with nonoperative treatment. Plan discussed with patient. Ok from ortho standpoint to be discharged. ESTUARDO LIGHT Jan 18, 2018 11:46
--- NOTE | 2018-01-18 13:21 | PDOC ---
PROGRESS NOTES Chief Complaint Chief Complaint CC: R tibial plateau fx HTN HLD Previous L femur fracture Colon resection History of Present Illness History of Present Illness Pt. seen and examined Pt. alert and oriented; affect good DW nursing VSS Pt. continues to report controlled pain in R leg Brace to R leg Discharge disposition pending Vitals Vitals Vital Signs Date Time Temp Pulse Resp B/P (MAP) Pulse Ox O2 Delivery O2 Flow Rate FiO2 01/18/18 11:00 98.0 101 16 110/60 (77) 96 Room Air 98.0 Physical Exam General: Alert, Oriented X3, Cooperative Heart: Regular rate, Normal S1, Normal S2, No murmurs Lungs: Clear Abdomen: Normal bowel sounds, Soft Extremities: No clubbing, No cyanosis, Normal pulses, Other (R LE in splint) Skin: No rashes, No breakdown Labs LABS Laboratory Tests Test 01/18/18 09:30 01/18/18 09:50 Sodium Level 140 mmol/L (136-145) Potassium Level 3.9 mmol/L (3.5-5.1) Chloride Level 104 mmol/L (98-107) Carbon Dioxide Level 30 mmol/L (21-32) Anion Gap 6 (6-14) Blood Urea Nitrogen 18 mg/dL (7-20) Creatinine 0.8 mg/dL (0.6-1.0) Estimated GFR (Cockcroft-Gault) 81.7 Glucose Level 170 mg/dL (70-99) Calcium Level 9.2 mg/dL (8.5-10.1) White Blood Count 8.1 x10^3/uL (4.0-11.0) Red Blood Count 2.88 x10^6/uL (3.50-5.40) Hemoglobin 9.4 g/dL (12.0-15.5) Hematocrit 27.7 % (36.0-47.0) Mean Corpuscular Volume 96 fL (79-100) Mean Corpuscular Hemoglobin 33 pg (25-35) Mean Corpuscular Hemoglobin Concent 34 g/dL (31-37) Red Cell Distribution Width 13.5 % (11.5-14.5) Platelet Count 133 x10^3/uL (140-400) Neutrophils (%) (Auto) 83 % (31-73) Lymphocytes (%) (Auto) 6 % (24-48) Monocytes (%) (Auto) 8 % (0-9) Eosinophils (%) (Auto) 3 % (0-3) Basophils (%) (Auto) 1 % (0-3) Neutrophils # (Auto) 6.8 x10^3uL (1.8-7.7) Lymphocytes # (Auto) 0.5 x10^3/uL (1.0-4.8) Monocytes # (Auto) 0.6 x10^3/uL (0.0-1.1) Eosinophils # (Auto) 0.3 x10^3/uL (0.0-0.7) Basophils # (Auto) 0.0 x10^3/uL (0.0-0.2) Review of Systems Review of Systems C/O pain to R leg Pt. denies weakness Assessment and Plan Assessmemt and Plan CC: (1) Fracture, tibial plateau Assessment R tibial plateau fx HTN HLD Previous L femur fracture Colon resection Plan: Wound care Fu w/ ortho, appreciate input PT/OT prn narcotics Monitor labs Home meds Continue current diet Discharge disposition pending Comment Review of Relevant I have reviewed the following items ladonna (where applicable) has been applied. Labs Laboratory Tests Test 01/18/18 09:30 01/18/18 09:50 Sodium Level 140 mmol/L (136-145) Potassium Level 3.9 mmol/L (3.5-5.1) Chloride Level 104 mmol/L (98-107) Carbon Dioxide Level 30 mmol/L (21-32) Anion Gap 6 (6-14) Blood Urea Nitrogen 18 mg/dL (7-20) Creatinine 0.8 mg/dL (0.6-1.0) Estimated GFR (Cockcroft-Gault) 81.7 Glucose Level 170 mg/dL (70-99) Calcium Level 9.2 mg/dL (8.5-10.1) White Blood Count 8.1 x10^3/uL (4.0-11.0) Red Blood Count 2.88 x10^6/uL (3.50-5.40) Hemoglobin 9.4 g/dL (12.0-15.5) Hematocrit 27.7 % (36.0-47.0) Mean Corpuscular Volume 96 fL (79-100) Mean Corpuscular Hemoglobin 33 pg (25-35) Mean Corpuscular Hemoglobin Concent 34 g/dL (31-37) Red Cell Distribution Width 13.5 % (11.5-14.5) Platelet Count 133 x10^3/uL (140-400) Neutrophils (%) (Auto) 83 % (31-73) Lymphocytes (%) (Auto) 6 % (24-48) Monocytes (%) (Auto) 8 % (0-9) Eosinophils (%) (Auto) 3 % (0-3) Basophils (%) (Auto) 1 % (0-3) Neutrophils # (Auto) 6.8 x10^3uL (1.8-7.7) Lymphocytes # (Auto) 0.5 x10^3/uL (1.0-4.8) Monocytes # (Auto) 0.6 x10^3/uL (0.0-1.1) Eosinophils # (Auto) 0.3 x10^3/uL (0.0-0.7) Basophils # (Auto) 0.0 x10^3/uL (0.0-0.2) Laboratory Tests Test 01/18/18 09:30 01/18/18 09:50 Sodium Level 140 mmol/L (136-145) Potassium Level 3.9 mmol/L (3.5-5.1) Chloride Level 104 mmol/L (98-107) Carbon Dioxide Level 30 mmol/L (21-32) Anion Gap 6 (6-14) Blood Urea Nitrogen 18 mg/dL (7-20) Creatinine 0.8 mg/dL (0.6-1.0) Estimated GFR (Cockcroft-Gault) 81.7 Glucose Level 170 mg/dL (70-99) Calcium Level 9.2 mg/dL (8.5-10.1) White Blood Count 8.1 x10^3/uL (4.0-11.0) Red Blood Count 2.88 x10^6/uL (3.50-5.40) Hemoglobin 9.4 g/dL (12.0-15.5) Hematocrit 27.7 % (36.0-47.0) Mean Corpuscular Volume 96 fL (79-100) Mean Corpuscular Hemoglobin 33 pg (25-35) Mean Corpuscular Hemoglobin Concent 34 g/dL (31-37) Red Cell Distribution Width 13.5 % (11.5-14.5) Platelet Count 133 x10^3/uL (140-400) Neutrophils (%) (Auto) 83 % (31-73) Lymphocytes (%) (Auto) 6 % (24-48) Monocytes (%) (Auto) 8 % (0-9) Eosinophils (%) (Auto) 3 % (0-3) Basophils (%) (Auto) 1 % (0-3) Neutrophils # (Auto) 6.8 x10^3uL (1.8-7.7) Lymphocytes # (Auto) 0.5 x10^3/uL (1.0-4.8) Monocytes # (Auto) 0.6 x10^3/uL (0.0-1.1) Eosinophils # (Auto) 0.3 x10^3/uL (0.0-0.7) Basophils # (Auto) 0.0 x10^3/uL (0.0-0.2) Medications Current Medications Sodium Chloride 1,000 ml @ 75 mls/hr [id number] IV Last administered on at 12:29; Start 01/16/18 at 00:58; Stop 01/17/18 at 00:57; Status DC Fentanyl Citrate (Fentanyl 2ml Vial) 25 mcg 1X ONCE IV Last administered on at 01:57; Start 01/16/18 at 01:30; Stop 01/16/18 at 01:31; Status DC Fentanyl Citrate (Fentanyl 2ml Vial) 50 mcg PRN Q2HR PRN IV SEVERE PAIN Last administered on 01/18/18at 10:14; Start 01/16/18 at 02:15 Ondansetron HCl (Zofran) 4 mg PRN Q6HRS PRN IV NAUSEA/VOMITING 1ST CHOICE; Start 01/16/18 at 02:15 Acetaminophen (Tylenol) 500 mg PRN Q6HRS PRN PO MILD PAIN / TEMP; Start at 17:30 Acetaminophen/ Hydrocodone Bitart (Lortab 5/325) 1 tab PRN Q4HRS PRN PO MODERATE TO SEVERE PAIN Last administered on 01/18/18at 09:14; Start 01/16/18 at 17:30 Atorvastatin Calcium (Lipitor) 10 mg HS PO Last administered on 01/17/18at 21:04 ; Start 01/16/18 at 21:00 Ferrous Sulfate (Feosol) 325 mg BIDWMEALS PO ; Start 01/16/18 at 18:00; Stop at 15:10; Status DC Hydrochlorothiazide (Hydrodiuril) 25 mg DAILY PO ; Start 01/16/18 at 18:00; Stop 01/16/18 at 18:00; Status DC Losartan Potassium (Cozaar) 50 mg DAILY PO ; Start 01/16/18 at 18:00; Stop 01/16 at 18:00; Status DC Pantoprazole Sodium (Protonix) 40 mg DAILYAC PO Last administered on 01/18/18at 09:14; Start 01/16/18 at 18:00 Non-Formulary Medication (Iron, Carb & Gluc/Fa/B12/C/Dss (Ferralet 90 Dual-Iron Tablet)) 1 tab DAILY PO ; Start 01/17/18 at 09:00; Status UNV Oxycodone HCl (Roxicodone) 5 mg PRN Q4HRS PRN PO BREAKTHROUGH PAIN; Start 01/16 at 17:30 Vitamin D (Vitamin D3) 2,000 unit DAILY PO Last administered on 01/18/18at 09:14 ; Start 01/17/18 at 09:00 Active Scripts Active Oxycodone Hcl 5 Mg Tablet 5 Mg PO PRN Q4HRS PRN Ferrous Sulfate 325 Mg Tablet 325 Mg PO BIDWMEALS Pantoprazole Sodium 40 Mg Tablet.dr 40 Mg PO DAILYAC Reported Hydrochlorothiazide Tablet (Hydrochlorothiazide) 25 Mg Tablet 25 Mg PO DAILY Losartan Potassium 50 Mg Tablet 50 Mg PO DAILY Ferralet 90 Dual-Iron Tablet (Iron, Carb & Gluc/Fa/B12/C/Dss) 1 Each Tablet 1 Tab PO DAILY Vitamin D3 (Cholecalciferol (Vitamin D3)) 2,000 Unit Capsule 2,000 Unit PO Atorvastatin Calcium 10 Mg Tablet 10 Mg PO HS Vitals/I & O Vital Sign - Last 24 Hours 01/17/18 01/17/18 01/17/18 01/17/18 15:34 16:08 19:15 20:00 Temp 98.2 98.4 98.2 98.4 Pulse 89 94 Resp 18 B/P (MAP) 113/58 (76) 116/68 (84) Pulse Ox 99 99 97 O2 Delivery Room Air Room Air Room Air Room Air 01/17/18 01/18/18 01/18/18 01/18/18 23:10 03:06 07:00 09:14 Temp 99.1 98.2 97.9 99.1 98.2 97.9 Pulse 96 81 85 Resp 18 18 16 17 B/P (MAP) 129/40 (69) 110/61 (77) 142/82 (102) Pulse Ox 96 98 98 98 O2 Delivery Room Air Room Air Room Air Room Air 01/18/18 01/18/18 01/18/18 01/18/18 10:14 10:20 10:45 11:00 Temp 98.0 98.0 Pulse 101 Resp 18 18 16 B/P (MAP) 110/60 (77) Pulse Ox 98 98 98 96 O2 Delivery Room Air Room Air Room Air Room Air Intake and Output 01/17/18 01/17/18 01/18/18 15:00 23:00 07:00 Intake Total 150 ml 400 ml 530 ml Output Total 240 ml Balance 150 ml 400 ml 290 ml DAVID HUANG III DO Jan 18, 2018 13:21
[2018-01-18 15:00] VITALS: BP 114/59
[2018-01-18 19:15] VITALS: BP 111/66
[2018-01-18] MEDS: ATORVASTATIN CALCIUM 10 MG TABLET. PO SCH (21:04)
[2018-01-18 23:19] VITALS: BP 119/64
[2018-01-19 03:02] VITALS: BP 112/62
[2018-01-19 04:13] LABS: CALCIUM 8.8 mg/dL (8.5-10.1); CREATININE 0.9 mg/dL (0.6-1.0); GFR 71.3; POTASSIUM 4.5 mmol/L (3.5-5.1)
[2018-01-19 04:16] LABS: BASO # 0.1 x10^3/uL (0.0-0.2); BASO % 1 % (0-3); EOS # 0.3 x10^3/uL (0.0-0.7); EOS % 5 % (0-3); HEMATOCRIT 25.6 % (36.0-47.0); HEMOGLOBIN 8.8 g/dL (12.0-15.5); LYMPH # 0.6 x10^3/uL (1.0-4.8); LYMPH % 10 % (24-48); MEAN CORPUSCULAR HEMOGLOBIN 33 pg (25-35); MEAN CORPUSCULAR HGB CONC 35 g/dL (31-37); MEAN CORPUSCULAR VOLUME 95 fL (79-100); MONO # 0.7 x10^3/uL (0.0-1.1); MONO % 11 % (0-9); NEUT # 4.7 x10^3uL (1.8-7.7); NEUT % 73 % (31-73); PLATELET COUNT 129 x10^3/uL (140-400); RED BLOOD COUNT 2.68 x10^6/uL (3.50-5.40); RED CELL DISTRIBUTION WIDTH 13.8 % (11.5-14.5); WHITE BLOOD COUNT 6.4 x10^3/uL (4.0-11.0)
[2018-01-19 07:00] VITALS: BP 148/80
[2018-01-19] MEDS: PANTOPRAZOLE 40 MG TABLET.DR. PO SCH (08:16)
[2018-01-19] MEDS: HYDROcodone/APAP 5/325MG 1 TAB TABLET PO PRN ×2 (08:16→13:20)
[2018-01-19] MEDS: CHOLECALCIFEROL (VITAMIN D3) 1,000 UNIT TABLET PO SCH (08:17)
[2018-01-19 11:00] VITALS: BP 111/59
--- NOTE | 2018-01-19 11:27 | PDOC ---
PROGRESS NOTES Chief Complaint Chief Complaint CC: R tibial plateau fx HTN HLD Previous L femur fracture Colon resection History of Present Illness History of Present Illness Pt. seen and examined Pt. alert and oriented; affect good DW nursing VSS Pt. continues to report controlled pain in R leg Brace to R leg Discharge to SNU Vitals Vitals Vital Signs Date Time Temp Pulse Resp B/P (MAP) Pulse Ox O2 Delivery O2 Flow Rate FiO2 01/19/18 09:41 Room Air 01/19/18 07:00 98.8 89 16 148/80 (102) 96 98.8 Physical Exam General: Alert, Oriented X3, Cooperative Heart: Regular rate, Normal S1, Normal S2, No murmurs Lungs: Clear Abdomen: Normal bowel sounds, Soft Extremities: No clubbing, No cyanosis, Normal pulses, Other (R LE in splint) Skin: No rashes, No breakdown Labs LABS Laboratory Tests Test 01/19/18 03:15 White Blood Count 6.4 x10^3/uL (4.0-11.0) Red Blood Count 2.68 x10^6/uL (3.50-5.40) Hemoglobin 8.8 g/dL (12.0-15.5) Hematocrit 25.6 % (36.0-47.0) Mean Corpuscular Volume 95 fL (79-100) Mean Corpuscular Hemoglobin 33 pg (25-35) Mean Corpuscular Hemoglobin Concent 35 g/dL (31-37) Red Cell Distribution Width 13.8 % (11.5-14.5) Platelet Count 129 x10^3/uL (140-400) Neutrophils (%) (Auto) 73 % (31-73) Lymphocytes (%) (Auto) 10 % (24-48) Monocytes (%) (Auto) 11 % (0-9) Eosinophils (%) (Auto) 5 % (0-3) Basophils (%) (Auto) 1 % (0-3) Neutrophils # (Auto) 4.7 x10^3uL (1.8-7.7) Lymphocytes # (Auto) 0.6 x10^3/uL (1.0-4.8) Monocytes # (Auto) 0.7 x10^3/uL (0.0-1.1) Eosinophils # (Auto) 0.3 x10^3/uL (0.0-0.7) Basophils # (Auto) 0.1 x10^3/uL (0.0-0.2) Sodium Level 142 mmol/L (136-145) Potassium Level 4.5 mmol/L (3.5-5.1) Chloride Level 107 mmol/L (98-107) Carbon Dioxide Level 30 mmol/L (21-32) Anion Gap 5 (6-14) Blood Urea Nitrogen 22 mg/dL (7-20) Creatinine 0.9 mg/dL (0.6-1.0) Estimated GFR (Cockcroft-Gault) 71.3 Glucose Level 129 mg/dL (70-99) Calcium Level 8.8 mg/dL (8.5-10.1) Review of Systems Review of Systems CO pain CO fatigue Assessment and Plan Assessmemt and Plan Problems Medical Problems: (1) Fracture, tibial plateau HTN HLD Previous L femur fracture Colon resection Status: Acute Plan: PRN narcotic PT/OT Home Meds. Labs discharge to SNU Comment Review of Relevant I have reviewed the following items ladonna (where applicable) has been applied. Labs Laboratory Tests Test 01/18/18 09:30 01/18/18 09:50 01/19/18 03:15 Sodium Level 140 mmol/L (136-145) 142 mmol/L (136-145) Potassium Level 3.9 mmol/L (3.5-5.1) 4.5 mmol/L (3.5-5.1) Chloride Level 104 mmol/L (98-107) 107 mmol/L (98-107) Carbon Dioxide Level 30 mmol/L (21-32) 30 mmol/L (21-32) Anion Gap 6 (6-14) 5 (6-14) Blood Urea Nitrogen 18 mg/dL (7-20) 22 mg/dL (7-20) Creatinine 0.8 mg/dL (0.6-1.0) 0.9 mg/dL (0.6-1.0) Estimated GFR (Cockcroft-Gault) 81.7 71.3 Glucose Level 170 mg/dL (70-99) 129 mg/dL (70-99) Calcium Level 9.2 mg/dL (8.5-10.1) 8.8 mg/dL (8.5-10.1) White Blood Count 8.1 x10^3/uL (4.0-11.0) 6.4 x10^3/uL (4.0-11.0) Red Blood Count 2.88 x10^6/uL (3.50-5.40) 2.68 x10^6/uL (3.50-5.40) Hemoglobin 9.4 g/dL (12.0-15.5) 8.8 g/dL (12.0-15.5) Hematocrit 27.7 % (36.0-47.0) 25.6 % (36.0-47.0) Mean Corpuscular Volume 96 fL (79-100) 95 fL (79-100) Mean Corpuscular Hemoglobin 33 pg (25-35) 33 pg (25-35) Mean Corpuscular Hemoglobin Concent 34 g/dL (31-37) 35 g/dL (31-37) Red Cell Distribution Width 13.5 % (11.5-14.5) 13.8 % (11.5-14.5) Platelet Count 133 x10^3/uL (140-400) 129 x10^3/uL (140-400) Neutrophils (%) (Auto) 83 % (31-73) 73 % (31-73) Lymphocytes (%) (Auto) 6 % (24-48) 10 % (24-48) Monocytes (%) (Auto) 8 % (0-9) 11 % (0-9) Eosinophils (%) (Auto) 3 % (0-3) 5 % (0-3) Basophils (%) (Auto) 1 % (0-3) 1 % (0-3) Neutrophils # (Auto) 6.8 x10^3uL (1.8-7.7) 4.7 x10^3uL (1.8-7.7) Lymphocytes # (Auto) 0.5 x10^3/uL (1.0-4.8) 0.6 x10^3/uL (1.0-4.8) Monocytes # (Auto) 0.6 x10^3/uL (0.0-1.1) 0.7 x10^3/uL (0.0-1.1) Eosinophils # (Auto) 0.3 x10^3/uL (0.0-0.7) 0.3 x10^3/uL (0.0-0.7) Basophils # (Auto) 0.0 x10^3/uL (0.0-0.2) 0.1 x10^3/uL (0.0-0.2) Laboratory Tests Test 01/19/18 03:15 White Blood Count 6.4 x10^3/uL (4.0-11.0) Red Blood Count 2.68 x10^6/uL (3.50-5.40) Hemoglobin 8.8 g/dL (12.0-15.5) Hematocrit 25.6 % (36.0-47.0) Mean Corpuscular Volume 95 fL (79-100) Mean Corpuscular Hemoglobin 33 pg (25-35) Mean Corpuscular Hemoglobin Concent 35 g/dL (31-37) Red Cell Distribution Width 13.8 % (11.5-14.5) Platelet Count 129 x10^3/uL (140-400) Neutrophils (%) (Auto) 73 % (31-73) Lymphocytes (%) (Auto) 10 % (24-48) Monocytes (%) (Auto) 11 % (0-9) Eosinophils (%) (Auto) 5 % (0-3) Basophils (%) (Auto) 1 % (0-3) Neutrophils # (Auto) 4.7 x10^3uL (1.8-7.7) Lymphocytes # (Auto) 0.6 x10^3/uL (1.0-4.8) Monocytes # (Auto) 0.7 x10^3/uL (0.0-1.1) Eosinophils # (Auto) 0.3 x10^3/uL (0.0-0.7) Basophils # (Auto) 0.1 x10^3/uL (0.0-0.2) Sodium Level 142 mmol/L (136-145) Potassium Level 4.5 mmol/L (3.5-5.1) Chloride Level 107 mmol/L (98-107) Carbon Dioxide Level 30 mmol/L (21-32) Anion Gap 5 (6-14) Blood Urea Nitrogen 22 mg/dL (7-20) Creatinine 0.9 mg/dL (0.6-1.0) Estimated GFR (Cockcroft-Gault) 71.3 Glucose Level 129 mg/dL (70-99) Calcium Level 8.8 mg/dL (8.5-10.1) Medications Current Medications Sodium Chloride 1,000 ml @ 75 mls/hr [id number] IV Last administered on at 12:29; Start 01/16/18 at 00:58; Stop 01/17/18 at 00:57; Status DC Fentanyl Citrate (Fentanyl 2ml Vial) 25 mcg 1X ONCE IV Last administered on at 01:57; Start 01/16/18 at 01:30; Stop 01/16/18 at 01:31; Status DC Fentanyl Citrate (Fentanyl 2ml Vial) 50 mcg PRN Q2HR PRN IV SEVERE PAIN Last administered on 01/18/18at 13:54; Start 01/16/18 at 02:15 Ondansetron HCl (Zofran) 4 mg PRN Q6HRS PRN IV NAUSEA/VOMITING 1ST CHOICE; Start 01/16/18 at 02:15 Acetaminophen (Tylenol) 500 mg PRN Q6HRS PRN PO MILD PAIN / TEMP Last administered on 01/18/18at 13:54; Start 01/16/18 at 17:30 Acetaminophen/ Hydrocodone Bitart (Lortab 5/325) 1 tab PRN Q4HRS PRN PO MODERATE TO SEVERE PAIN Last administered on 01/19/18at 08:16; Start 01/16/18 at 17:30 Atorvastatin Calcium (Lipitor) 10 mg HS PO Last administered on 01/18/18at 21:04 ; Start 01/16/18 at 21:00 Ferrous Sulfate (Feosol) 325 mg BIDWMEALS PO ; Start 01/16/18 at 18:00; Stop at 15:10; Status DC Hydrochlorothiazide (Hydrodiuril) 25 mg DAILY PO ; Start 01/16/18 at 18:00; Stop 01/16/18 at 18:00; Status DC Losartan Potassium (Cozaar) 50 mg DAILY PO ; Start 01/16/18 at 18:00; Stop 01/16 at 18:00; Status DC Pantoprazole Sodium (Protonix) 40 mg DAILYAC PO Last administered on 01/19/18at 08:16; Start 01/16/18 at 18:00 Non-Formulary Medication (Iron, Carb & Gluc/Fa/B12/C/Dss (Ferralet 90 Dual-Iron Tablet)) 1 tab DAILY PO ; Start 01/17/18 at 09:00; Status UNV Oxycodone HCl (Roxicodone) 5 mg PRN Q4HRS PRN PO BREAKTHROUGH PAIN; Start 01/16 at 17:30 Vitamin D (Vitamin D3) 2,000 unit DAILY PO Last administered on 01/19/18at 08:17 ; Start 01/17/18 at 09:00 Active Scripts Active Oxycodone Hcl 5 Mg Tablet 5 Mg PO PRN Q4HRS PRN Ferrous Sulfate 325 Mg Tablet 325 Mg PO BIDWMEALS Pantoprazole Sodium 40 Mg Tablet.dr 40 Mg PO DAILYAC Reported Hydrochlorothiazide Tablet (Hydrochlorothiazide) 25 Mg Tablet 25 Mg PO DAILY Losartan Potassium 50 Mg Tablet 50 Mg PO DAILY Ferralet 90 Dual-Iron Tablet (Iron, Carb & Gluc/Fa/B12/C/Dss) 1 Each Tablet 1 Tab PO DAILY Vitamin D3 (Cholecalciferol (Vitamin D3)) 2,000 Unit Capsule 2,000 Unit PO Atorvastatin Calcium 10 Mg Tablet 10 Mg PO HS Vitals/I & O Vital Sign - Last 24 Hours 01/18/18 01/18/18 01/18/18 01/18/18 13:54 14:30 15:00 19:15 Temp 97.7 98.2 97.7 98.2 Pulse 81 88 Resp 18 16 18 B/P (MAP) 114/59 (77) 111/66 (81) Pulse Ox 96 96 96 97 O2 Delivery Room Air Room Air Room Air Room Air 01/18/18 01/18/18 01/18/18 01/18/18 20:00 21:05 22:05 23:19 Temp 98.3 98.3 Pulse 89 Resp 16 16 18 B/P (MAP) 119/64 (82) Pulse Ox 97 97 96 O2 Delivery Room Air Room Air Room Air 01/19/18 01/19/18 01/19/18 01/19/18 03:02 07:00 08:00 08:16 Temp 98.4 98.8 98.4 98.8 Pulse 88 89 Resp 18 16 B/P (MAP) 112/62 (79) 148/80 (102) Pulse Ox 97 96 O2 Delivery Room Air Room Air Room Air Room Air 01/19/18 09:41 O2 Delivery Room Air Intake and Output 01/18/18 01/18/18 01/19/18 15:00 23:00 07:00 Intake Total 200 ml 480 ml Balance 200 ml 480 ml DAVID HUANG III DO Jan 19, 2018 11:27
--- NOTE | 2018-01-19 11:33 | DISCH ---
DISCHARGE DISCHARGE INFORMATION: FINAL DIAGNOSIS Problems Medical Problems: (1) Fracture, tibial plateau Status: Acute CONDITION ON DISCHARGE: Stable CODE STATUS: Code Status: Full CORRECTION: SNF STAY <30 DAYS: Yes HOSPICE: HOSPICE: No HOSPICE EVAL & TREAT: No LTAC: ADMIT TO LTAC: No POST DISCHARGE ORDERS: ACTIVITY ORDERS: Activity as tolerated DIET AFTER DISCHARGE: Cardiac TREATMENT/EQUIPMENT ORDERS: ADAPTIVE EQUIPMENT NEEDED: Walker Physical Therapy For: Evalulation/Treatment Occupational Therapy For: Evaluation/Treatment DISCHARGE MEDICATIONS: Home Meds Active Scripts Oxycodone Hcl (OXYCODONE HCL) 5 Mg Tablet, 5 MG PO PRN Q4HRS PRN for BREAKTHROUGH PAIN, #30 TAB Prov:COLT HAYES MD 01/22/17 Ferrous Sulfate (FERROUS SULFATE) 325 Mg Tablet, 325 MG PO BIDWMEALS, #60 TAB- CAP Prov:FAHAD MAURICIO MD 08/09/16 Pantoprazole Sodium (PANTOPRAZOLE SODIUM) 40 Mg Tablet.dr, 40 MG PO DAILYAC, # 30 TAB-CAP Prov:FAHAD MAURICIO MD 08/09/16 Reported Medications Hydrochlorothiazide (HYDROCHLOROTHIAZIDE TABLET ) 25 Mg Tablet, 25 MG PO DAILY for DIURETIC, TAB 0 Refills 01/16/18 Losartan Potassium (LOSARTAN POTASSIUM) 50 Mg Tablet, 50 MG PO DAILY, TAB 01/16/18 Iron, Carb & Gluc/Fa/B12/C/Dss (FERRALET 90 DUAL-IRON TABLET) 1 Each Tablet, 1 TAB PO DAILY, #90 TAB 3 Refills 01/07/17 Cholecalciferol (Vitamin D3) (VITAMIN D3) 2,000 Unit Capsule, 2000 UNIT PO 08/06/16 Atorvastatin Calcium (ATORVASTATIN CALCIUM) 10 Mg Tablet, 10 MG PO HS for FOR CHOLESTEROL, #30 TAB 0 Refills 08/06/16 Discontinued Reported Medications Valsartan/Hydrochlorothiazide (DIOVAN HCT 320-12.5 MG TAB) 1 Each Tablet, 1 TAB PO DAILY, #90 TAB 1 Refill 01/07/17 Discontinued Scripts Doxycycline Hyclate (DOXYCYCLINE HYCLATE) 100 Mg Tablet, 1 TAB PO BID, #14 TAB Prov:YISEL BUSTAMANTE MD 09/08/17 Mupirocin Calcium (BACTROBAN CREAM) 15 Gm Cream..g., 1 ENDY TP TID, #30 GM Prov:YISEL BUSTAMANTE MD 09/08/17 Amoxicillin/Potassium Clav (AUGMENTIN 875-125 TABLET) 1 Each Tablet, 1 TAB PO BID, #10 TAB Prov:COLT HAYES MD 01/22/17 DAVID HUANG III, DO Jan 19, 2018 11:33
== END 2018-01-19 13:28 | DRG 562 ==
LOC: ER 00:04 → 4 NORTH 01:00
PROVIDERS: ADMIT Family Medicine; ATTEND Family Medicine
DX: S82.141A Displaced bicondylar fracture of right tibia, initial encounter for closed fracture (principal); N17.0 Acute kidney failure with tubular necrosis; E44.0 Moderate protein-calorie malnutrition; Z68.1 Body mass index [BMI] 19.9 or less, adult; E78.5 Hyperlipidemia, unspecified; I10 Essential (primary) hypertension; M41.9 Scoliosis, unspecified; W11.XXXA Fall on and from ladder, initial encounter; Y93.89 Activity, other specified; Y92.89 Other specified places as the place of occurrence of the external cause; Y99.8 Other external cause status; Z91.041 Radiographic dye allergy status; Z85.038 Personal history of other malignant neoplasm of large intestine; Z90.49 Acquired absence of other specified parts of digestive tract
CPT/HCPCS: 36415; 71045; 73502; 73552; 73562; 73700; 80048; 80053; 85025; 85610; 86850; 86900; 86901; 96374; J3010; J7030; 97110; 97116; 97530; 97535; 99285-25

== ENCOUNTER → 2018-10-02 | Outpatient (CLI) | payer MEDICARE ==
[2018-02-12 15:00] VITALS: BP 131/76
[~2018-10-02] MED LIST changes: +HYDR-2145 PO; +HYDR-2761 PO; +LOSA-73 PO; +LOSA25TA54 PO; +OMEP20TA8 PO; +OXYC5TAB4 PO; -OXYC5TAB95 PO; +POLY17PO29 PO; +POTA10TA12 PO; +ROBITUSSIN DM PO
--- NOTE | 2018-10-02 13:16 | CARD ---
MR#: [id number] Date of Study: 10/02/2018 Ordering Physician: KATALINA CODY, Referring Physician: KATALINA CODY, Tech: Justina Vang [facility] APPROVED REPORT EXAM: Two-dimensional and M-mode echocardiogram with Doppler and color Doppler. Other Information Quality : AverageHR: 85bpm Rhythm : NSR INDICATION Murmur 2D DIMENSIONS RVDd2.5 (2.9-3.5cm)Left Atrium(2D)2.8 (1.6-4.0cm) IVSd0.8 (0.7-1.1cm)Aortic Root(2D)2.9 (2.0-3.7cm) LVDd4.8 (3.9-5.9cm)LVOT Diameter1.8 (1.8-2.4cm) PWd0.9 (0.7-1.1cm)LVDs3.4 (2.5-4.0cm) FS (%) 28.5 %SV58.3 ml LVEF(%)55.0 (>50%) Aortic Valve AoV Peak Paul.132.8cm/sAoV VTI25.6cm AO Peak GR.7.1mmHgLVOT Peak Paul.111.5cm/s AO Mean GR.3mmHgAVA (VMAX)2.17cm2 DANYELLE (VTI)2.20cm2 Mitral Valve MV E Kfanynpn69.0cm/sMV E Peak Gr.165mmHg MV DECEL [id number] A Dcjxgtfn461.1cm/s MV E Mean Gr.6mmHgE/A Ratio0.5 Pulmonary Valve PV Peak Yvzgizxe85.3cm/s Tricuspid Valve TR P. Sksxoetc590ez/sRAP [id number] TR Peak Gr.[id number] LEFT VENTRICLE The left ventricle is normal size. There is normal left ventricular wall thickness. The left ventricu lar systolic function is normal and the ejection fraction is within normal range. The Ejection Fracti on is 50-55%. There is normal LV segmental wall motion. Transmitral Doppler flow pattern is Grade I-a bnormal relaxation pattern. RIGHT VENTRICLE The right ventricle is normal size. There is normal right ventricular wall thickness. The right ventr icular systolic function is normal. ATRIA The left atrium size is normal. The right atrium size is normal. The interatrial septum is intact wit h no evidence for an atrial septal defect or patent foramen ovale as noted on 2-D or Doppler imaging. AORTIC VALVE The aortic valve is mildly calcified. The aortic valve is trileaflet. Doppler and Color Flow revealed no significant aortic regurgitation. There is no significant aortic valvular stenosis. There is no a ortic valvular vegetation. MITRAL VALVE The mitral valve is moderately thickened but opens well. A mild mitral valve prolapse is present. The re is no mitral valve stenosis. Doppler and Color-flow revealed moderate mitral regurgitation. TRICUSPID VALVE The tricuspid valve is normal in structure and function. Doppler and Color Flow revealed mild tricusp id regurgitation. The PA pressure was estimated at 33 mmHg. There is no tricuspid valve prolapse or v egetation. There is no tricuspid valve stenosis. PULMONIC VALVE The pulmonic valve is not well visualized. GREAT VESSELS The aortic root is normal in size. The ascending aorta is normal in size. The IVC is normal in size a nd collapses >50% with inspiration. PERICARDIAL EFFUSION There is no evidence of significant pericardial effusion. Critical Notification Critical Value: No <Conclusion> The left ventricle is normal size. The left ventricular systolic function is normal and the ejection fraction is within normal range. The Ejection Fraction is 50-55%. There is no significant aortic valvular stenosis. Doppler and Color Flow revealed no significant aortic regurgitation. Doppler and Color-flow revealed moderate mitral regurgitation. Doppler and Color Flow revealed mild tricuspid regurgitation. The PA pressure was estimated at 33 mmHg. Signed by : Kiran Pratt MD Electronically Approved : 10/02/2018 13:16:27
== END | disposition home or self-care (01) ==
LOC: ECHO 11:54
PROVIDERS: ATTEND Internal Medicine Cardiovascular Disease
DX: I08.3 Combined rheumatic disorders of mitral, aortic and tricuspid valves (principal)
CPT/HCPCS: 93306